=== PATIENT | male | born 1985 | race Caucasian/White ===

== ENCOUNTER 2016-04-06 13:12 | Emergency (ER) | payer MEDICAID, OTHER ==
[2016-04-06] MEDS ORDERED: IBUPROFEN 600 MG TAB As Ordered ONE (13:55)
--- NOTE | 2016-04-06 14:44 | REP ---
Clinical: Trauma; thoracic pain. Technique: AP, lateral, and swimmers views. Findings: Alignment and kyphosis is maintained. Vertebral bodies intact. No acute fracture / compression injury or subluxation. No degenerative changes. Paravertebral soft tissues are normal. Impression: Normal thoracic spine series. Signed by Kofi Sullivan MD 04/06/2016 02:35 P
--- NOTE | 2016-04-06 14:46 | REP ---
Clinical: Trauma. Technique: Frontal view of the chest with multiple views of the right hemithorax. Findings: Frontal view of the chest demonstrates no acute cardiopulmonary process. Multiple views of the right hemithorax demonstrates no obvious acute rib fracture or pathology. Impression: Normal right rib series Signed by Kofi Sullivan MD 04/06/2016 02:37 P
--- NOTE | 2016-04-06 14:48 | REP ---
Clinical: Trauma. Technique: AP, Suleiman and bilateral oblique views of the mandible. Findings: Mandible including bilateral temporomandibular joints appear normal. No acute fracture or dislocation. Impression: Normal mandible radiographs. Signed by Kofi Sullivan MD 04/06/2016 02:39 P
--- NOTE | 2016-04-06 15:06 | REP ---
CERVICAL SPINE, SEVEN VIEWS: HISTORY: Trauma. There is no acute fracture or subluxation. The intervertebral discs are normal in height. The neural foramina are patent. IMPRESSION: There is no acute fracture or subluxation. Signed by Sriram Bustamante MD 04/06/2016 03:29 P
--- NOTE | 2016-04-06 15:56 | EDDOCDS ---
Physician Documentation [facility] Name: Ryan Hoffmann Age: 30 yrs Sex: Male : 1985 Arrival Date: 04/06/2016 Time: 13:12 Bed PR Private MD: Mary Gu Abdul Disposition: 04/06/16 15:39 Discharged to Home/Self Care. Impression: Contusion of back wall of thorax, Acute pain due to trauma, Chronic pain syndrome. - Condition is Stable. - Discharge Instructions: Contusion, Chronic Pain. - Prescriptions for Ibuprofen 600 mg Oral Tablet - take 1 tablet by ORAL route every 6 hours As needed take with food; 30 tablet. Cyclobenzaprine 10 mg Oral Tablet - take 1 tablet by ORAL route 3 times per day As needed; 15 tablet. - Medication Reconciliation, Local Pharmacy Hours form. - Follow up: Mary Gu; When: 4 - 5 days; Reason: Further diagnostic work-up, Recheck today's complaints, Continuance of care. - Problem is new. - Symptoms are unchanged. - Notes: ice 20 min an hour Historical: - Allergies: No known drug Allergies; - Home Meds: 1. Zoloft 50 mg Oral tab 1 tab once daily - PMHx: Asthma; back injury; Degenerative disc disease; Depression; PTSD; - PSHx: right foot surgery; Tonsillectomy; - Social history: Smoking status: Patient states former smoker of tobacco. No barriers to communication noted, The patient speaks fluent Zambian, Speaks appropriately for age. - Family history: Not pertinent. - : The pt / caregiver states he / she is not on anticoagulants. Home medication list is obtained from the patient. - Exposure Risk Screening:: None identified. Vital Signs: 04/06 13:14 BP 134 / 77; Pulse 102; Resp 18 S; Temp 100.4(O); Pulse Ox 100% on R/A; Weight 63.5 kg gr2 / 139.99 lbs (R); Height 5 ft. 7 in. (170.18 cm) (R); Pain 7/10; 15:42 BP 136 / 89; Pulse 85; Resp 18; Temp 98.9; Pulse Ox 98% on R/A; ttb 13:14 Body Mass Index 21.93 (63.50 kg, 170.18 cm) gr2 MDM: 13:47 Spine, Thoracic 3 Views Ordered. EDMS 13:47 Rib Unilat W/PA Chest Only Ordered. EDMS 13:48 Ibuprofen 600 mg PO once ordered. ke 13:48 Spine, Cervical Ordered. EDMS 13:59 Financial registration complete. lg 13:59 Mandible Ordered. EDMS 14:33 [facility] Payment Agreement was scanned into [employer] and attached to record. lg Administered Medications: 13:57 Drug: Ibuprofen 600 mg [ibuprofen 600 mg tablet (1 tabs)] Route: PO; ck1 Signatures: Dispatcher [employer] EDMS Mehnaz Cool, Reg Reg lg Prieto Roca, SHRIMP PICKER SHRIMP PICKER Margaret HuffRN RN ck1 Melissa Heredia, THIAGO RN ttb The chart was reviewed and I authenticate all verbal orders and agree with the evaluation and treatment provided.Attachments: 14:33 [facility] Payment Agreement lg MTDD
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
--- NOTE | 2016-04-08 16:56 | EDDOCDS ---
Physician Documentation [facility] Name: Ryan Hoffmann Age: 30 yrs Sex: Male : 1985 Arrival Date: 04/06/2016 Time: 13:12 Bed PR Private MD: Mary Gu Abdul Disposition: 04/06/16 15:39 Discharged to Home/Self Care. Impression: Contusion of back wall of thorax, Acute pain due to trauma, Chronic pain syndrome. - Condition is Stable. - Discharge Instructions: Contusion, Chronic Pain. - Prescriptions for Ibuprofen 600 mg Oral Tablet - take 1 tablet by ORAL route every 6 hours As needed take with food; 30 tablet. Cyclobenzaprine 10 mg Oral Tablet - take 1 tablet by ORAL route 3 times per day As needed; 15 tablet. - Medication Reconciliation, Local Pharmacy Hours form. - Follow up: Mary Gu; When: 4 - 5 days; Reason: Further diagnostic work-up, Recheck today's complaints, Continuance of care. - Problem is new. - Symptoms are unchanged. - Notes: ice 20 min an hour Historical: - Allergies: No known drug Allergies; - Home Meds: 1. Zoloft 50 mg Oral tab 1 tab once daily - PMHx: Asthma; back injury; Degenerative disc disease; Depression; PTSD; - PSHx: right foot surgery; Tonsillectomy; - Social history: Smoking status: Patient states former smoker of tobacco. No barriers to communication noted, The patient speaks fluent Vietnamese, Speaks appropriately for age. - Family history: Not pertinent. - : The pt / caregiver states he / she is not on anticoagulants. Home medication list is obtained from the patient. - Exposure Risk Screening:: None identified. Vital Signs: 04/06 13:14 BP 134 / 77; Pulse 102; Resp 18 S; Temp 100.4(O); Pulse Ox 100% on R/A; Weight 63.5 kg gr2 / 139.99 lbs (R); Height 5 ft. 7 in. (170.18 cm) (R); Pain 7/10; 15:42 BP 136 / 89; Pulse 85; Resp 18; Temp 98.9; Pulse Ox 98% on R/A; ttb 13:14 Body Mass Index 21.93 (63.50 kg, 170.18 cm) gr2 MDM: 13:47 Spine, Thoracic 3 Views Ordered. EDMS 13:47 Rib Unilat W/PA Chest Only Ordered. EDMS 13:48 Ibuprofen 600 mg PO once ordered. ke 13:48 Spine, Cervical Ordered. EDMS 13:59 Financial registration complete. lg 13:59 Mandible Ordered. EDMS 14:33 [facility] Payment Agreement was scanned into [email or web address] and attached to record. 04/07 11:29 T-Sheet-- Draft Copy was scanned into [email or web address] and attached to record. gb Administered Medications: 04/06 13:57 Drug: Ibuprofen 600 mg [ibuprofen 600 mg tablet (1 tabs)] Route: PO; ck1 Signatures: Dispatcher [employer] EDMS Ines Ashby, Reg Reg Mehnaz Preciado, Reg Reg lg Prieto Roca, WASHING MACHINE ASSEMBLER WASHING MACHINE ASSEMBLER Margaret Huff,RN RN ck1 Melissa Heredia RN RN ttb The chart was reviewed and I authenticate all verbal orders and agree with the evaluation and treatment provided.Attachments: 14:33 [facility] Payment Agreement 04/07 11:29 T-Sheet-- Draft Copy gb Chart Complete MTDD
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
--- NOTE | 2016-04-08 16:56 | EDDOCDS ---
Physician Documentation [facility] Name: Ryan Hoffmann Age: 30 yrs Sex: Male : 1985 Arrival Date: 04/06/2016 Time: 13:12 Bed PR Private MD: Mary Gu Abdul Disposition: 04/06/16 15:39 Discharged to Home/Self Care. Impression: Contusion of back wall of thorax, Acute pain due to trauma, Chronic pain syndrome. - Condition is Stable. - Discharge Instructions: Contusion, Chronic Pain. - Prescriptions for Ibuprofen 600 mg Oral Tablet - take 1 tablet by ORAL route every 6 hours As needed take with food; 30 tablet. Cyclobenzaprine 10 mg Oral Tablet - take 1 tablet by ORAL route 3 times per day As needed; 15 tablet. - Medication Reconciliation, Local Pharmacy Hours form. - Follow up: Mary Gu; When: 4 - 5 days; Reason: Further diagnostic work-up, Recheck today's complaints, Continuance of care. - Problem is new. - Symptoms are unchanged. - Notes: ice 20 min an hour Historical: - Allergies: No known drug Allergies; - Home Meds: 1. Zoloft 50 mg Oral tab 1 tab once daily - PMHx: Asthma; back injury; Degenerative disc disease; Depression; PTSD; - PSHx: right foot surgery; Tonsillectomy; - Social history: Smoking status: Patient states former smoker of tobacco. No barriers to communication noted, The patient speaks fluent Austrian, Speaks appropriately for age. - Family history: Not pertinent. - : The pt / caregiver states he / she is not on anticoagulants. Home medication list is obtained from the patient. - Exposure Risk Screening:: None identified. Vital Signs: 04/06 13:14 BP 134 / 77; Pulse 102; Resp 18 S; Temp 100.4(O); Pulse Ox 100% on R/A; Weight 63.5 kg gr2 / 139.99 lbs (R); Height 5 ft. 7 in. (170.18 cm) (R); Pain 7/10; 15:42 BP 136 / 89; Pulse 85; Resp 18; Temp 98.9; Pulse Ox 98% on R/A; ttb 13:14 Body Mass Index 21.93 (63.50 kg, 170.18 cm) gr2 MDM: 13:47 Spine, Thoracic 3 Views Ordered. EDMS 13:47 Rib Unilat W/PA Chest Only Ordered. EDMS 13:48 Ibuprofen 600 mg PO once ordered. ke 13:48 Spine, Cervical Ordered. EDMS 13:59 Financial registration complete. lg 13:59 Mandible Ordered. EDMS 14:33 [facility] Payment Agreement was scanned into [employer] and attached to record. 04/07 11:29 T-Sheet-- Draft Copy was scanned into [employer] and attached to record. gb Administered Medications: 04/06 13:57 Drug: Ibuprofen 600 mg [ibuprofen 600 mg tablet (1 tabs)] Route: PO; ck1 Signatures: Dispatcher [employer] EDMS Ines Ashby, Reg Reg Mehnaz Preciado, Reg Reg lg Prieto Roca, EXPANDING MACHINE OPERATOR EXPANDING MACHINE OPERATOR Margaret Huff,RN RN ck1 Melissa Heredia RN RN ttb The chart was reviewed and I authenticate all verbal orders and agree with the evaluation and treatment provided.Attachments: 14:33 [facility] Payment Agreement 04/07 11:29 T-Sheet-- Draft Copy gb Chart Complete MTDD
== END 2016-04-06 15:55 | disposition home or self-care (01) ==
LOC: M ED 13:12
DX: S20.229A Contusion of unspecified back wall of thorax, initial encounter (principal); M54.9 Dorsalgia, unspecified; G89.29 Other chronic pain; J45.909 Unspecified asthma, uncomplicated; F43.12 Post-traumatic stress disorder, chronic; M51.35 Other intervertebral disc degeneration, thoracolumbar region; Z87.891 Personal history of nicotine dependence; Z79.899 Other long term (current) drug therapy; Y04.0XXA Assault by unarmed brawl or fight, initial encounter; Y92.89 Other specified places as the place of occurrence of the external cause; Y93.89 Activity, other specified; Y99.9 Unspecified external cause status

== ENCOUNTER → 2016-04-23 | Outpatient (CLI) | payer OTHER ==
[2016-04-23 11:35] LABS: MEAN CORPUSCULAR HEMOGLOBIN 30.7 pg (27.0-33.0); MEAN CORPUSCULAR HGB CONC 33.3 g/dl (32.0-36.5); MEAN CORPUSCULAR VOLUME 92.1 fl (80.0-96.0); RED CELL DISTRIBUTION WIDTH 12.5 % (11.5-14.5); WHITE BLOOD COUNT 6.2 K/mm3 (4.0-10.0)
[2016-04-23 12:18] LABS: ALBUMIN 4.2 GM/DL (3.2-5.2); ALBUMIN/GLOBULIN RATIO 1.35 (1.00-1.93); ALKALINE PHOSPHATASE 80 U/L (45-117); ALT/SGPT 15 U/L (12-78); ANION GAP 8 MEQ/L (8-16); AST/SGOT 15 U/L (15-37); BILIRUBIN,TOTAL 0.4 MG/DL (0.2-1.0); BLOOD UREA NITROGEN 8 MG/DL (7-18); CALCIUM LEVEL 8.8 MG/DL (8.5-10.1); CARBON DIOXIDE LEVEL 28 MEQ/L (21-32); CHLORIDE LEVEL 104 MEQ/L (98-107); CHOLESTEROL LEVEL 147 MG/DL (<200); CREATININE FOR GFR 0.94 MG/DL (0.70-1.30); GLOMERULAR FILTRATION RATE > 60.0 (>60); GLUCOSE, FASTING 102 MG/DL (70-105); POTASSIUM SERUM 4.3 MEQ/L (3.5-5.1); SODIUM LEVEL 140 MEQ/L (136-145); TOTAL PROTEIN 7.3 GM/DL (6.4-8.2); TRIGLYCERIDES LEVEL 124 MG/DL (<150)
--- NOTE | 2016-04-23 13:07 | REP ---
SCROTAL ULTRASOUND: Real-time sonographic evaluation of scrotum and contents performed. Testicles are normal in size and echotexture, right testicle measuring 3.9 x 2.8 x 3.5 cm and left testicle 3.6 x 2.2 x 2.8 cm. There is no testicular mass or torsion. Blood flow is seen in each testicle with duplex Doppler evaluation, RI of the right testicle 0.5 and left testicle 0.44. A 3 mm cyst is seen in the head of the right epididymis. Reportedly, there is a palpable abnormality on the right, corresponding to the head of the epididymis. IMPRESSION: No testicular mass or torsion. Tiny cyst in the head of the right epididymis. Otherwise, unremarkable exam. Signed by Steven Esquivel MD 04/23/2016 04:17 P
== END ==
LOC: M RAD 10:53 → M LAB 10:53
PROVIDERS: ATTEND Family Medicine
DX: N50.3 Cyst of epididymis (principal); D64.9 Anemia, unspecified; R53.83 Other fatigue

== ENCOUNTER → 2016-06-05 | Outpatient (CLI) | payer OTHER ==
--- NOTE | 2016-06-05 09:02 | REP ---
MRI THORACIC SPINE WITHOUT CONTRAST: HISTORY: Back pain. A small left paracentral disc protrusion is present at the T5-6 level. There is minimal effacement of the thecal sac without spinal cord compression. The T5 neural foramina are patent. A small central disc protrusion is present at the T6-7 level. This abuts the spinal cord. The C6 neural foramina are patent. A small right paracentral disc protrusion is present at the T8-9 level. There is minimal effacement of the thecal sac without spinal cord compression. The T8 neural foramina are patent. There is no other disc bulge or herniation. The remaining neural foramina are patent. The spinal cord is normal in signal intensity. Normal signal intensity is present in the thoracic vertebral bodies. IMPRESSION: Small disc protrusions at the T5-6, T6-7 and T8-9 levels without spinal cord compression. Signed by Sriram Bustamante MD 06/05/2016 09:04 A
--- NOTE | 2016-06-05 09:18 | REP ---
MR LUMBAR SPINE WITHOUT CONTRAST: HISTORY: Back pain. There is no disc bulge or herniation at the L1-2 through L3-4 and L5-S1 levels. The nerves exit the neural foramina without compression. A diffuse disc bulge is present at the L4-5 level. This abuts the thecal sac. The L4 nerves exit the neural foramina without compression. The conus medullaris is normal in appearance terminating at the level of the L1-2 intervertebral disc. Normal signal intensity is present in the lumbar intervertebral discs and vertebral bodies. IMPRESSION: Diffuse disc bulge at the L4-5 level. This abuts the thecal sac. Signed by Sriram Bustamante MD 06/05/2016 09:22 A
== END ==
LOC: M RAD 06:58
PROVIDERS: ATTEND Physician Assistant
DX: M51.34 Other intervertebral disc degeneration, thoracic region (principal); M51.26 Other intervertebral disc displacement, lumbar region

== ENCOUNTER 2017-03-02 12:03 | Emergency (ER) | payer MEDICAID, OTHER ==
[2017-03-02] MEDS: ONDANSETRON 4 MG ORAL DISINTEGRATING TAB (S0181) PO (11:56)
[2017-03-02] MEDS: NAPROXEN 250 MG TAB PO (11:57)
== END 2017-03-02 12:58 | disposition home or self-care (01) ==
LOC: M ED 12:03
DX: R52 Pain, unspecified (principal); F99 Mental disorder, not otherwise specified; Z87.891 Personal history of nicotine dependence; Z79.899 Other long term (current) drug therapy
CPT/HCPCS: 71046

== ENCOUNTER → 2017-05-08 | Outpatient (CLI) | payer OTHER ==
[2017-05-08 11:05] LABS: HEMOGLOBIN 13.5 g/dl (14.0-18.0); MEAN CORPUSCULAR HEMOGLOBIN 29.9 pg (27.0-33.0); MEAN CORPUSCULAR HGB CONC 32.9 g/dl (32.0-36.5); MEAN CORPUSCULAR VOLUME 90.7 fl (80.0-96.0); PLATELET COUNT, AUTOMATED 305 10^3/uL (150-450); RED BLOOD COUNT 4.52 10^6/uL (4.30-6.10); RED CELL DISTRIBUTION WIDTH 14.3 % (11.5-14.5); WHITE BLOOD COUNT 5.6 10^3/uL (4.0-10.0)
[2017-05-08 11:30] LABS: ERYTHROCYTE SEDIMENTATION RATE 1 mm/hr (0-15)
[2017-05-08 11:36] LABS: ALBUMIN 4.6 GM/DL (3.2-5.2); ALBUMIN/GLOBULIN RATIO 1.59 (1.00-1.93); ALKALINE PHOSPHATASE 64 U/L (45-117); ALT/SGPT 15 U/L (12-78); ANION GAP 3 MEQ/L (8-16); AST/SGOT 11 U/L (7-37); BILIRUBIN,TOTAL 0.2 MG/DL (0.2-1.0); BLOOD UREA NITROGEN 13 MG/DL (7-18); CALCIUM LEVEL 8.6 MG/DL (8.5-10.1); CARBON DIOXIDE LEVEL 31 MEQ/L (21-32); CHLORIDE LEVEL 109 MEQ/L (98-107); CHOLESTEROL LEVEL 124 MG/DL (<200); CHOLESTEROL RISK RATIO 2.254 (<5); CREATININE FOR GFR 0.94 MG/DL (0.70-1.30); GLOMERULAR FILTRATION RATE > 60.0 (>60); GLUCOSE, FASTING 82 MG/DL (70-100); HDL CHOLESTEROL 55 MG/DL (>40); LDL CHOLESTEROL 60.2 MG/DL (<100); NON-HDL-C 69 MG/DL; POTASSIUM SERUM 4.3 MEQ/L (3.5-5.1); RHEUMATOID FACTOR QUANT < 10.0 IU/ML (<15.0); SODIUM LEVEL 143 MEQ/L (136-145); THYROID STIMULATING HORMONE 0.578 uIU/ML (0.358-3.740); TOTAL PROTEIN 7.5 GM/DL (6.4-8.2); TRIGLYCERIDES LEVEL 44 MG/DL (<150); URIC ACID 5.6 MG/DL (3.5-7.2)
[2017-05-08 12:03] LABS: TOTAL 25(OH) VITAMIN D 18.9 NG/ML (30.0-100.0)
[2017-05-10 00:07] LABS: Lyme Disease IgG/IgM Antibodie <0.91 ISR (0.00-0.90); Lyme Disease IgM Ab Quantitati <0.80 index (0.00-0.79)
== END ==
LOC: M LAB 10:28
DX: D64.9 Anemia, unspecified (principal); R53.83 Other fatigue; E03.9 Hypothyroidism, unspecified
CPT/HCPCS: 84443

== ENCOUNTER → 2017-07-02 | Outpatient (CLI) | payer OTHER | LOC: M RAD 10:07 | DX: M85.9 Disorder of bone density and structure, unspecified (principal); R63.4 Abnormal weight loss ==

== ENCOUNTER 2017-08-14 21:44 | Emergency (ER) | payer OTHER ==
[2017-08-14] MEDS: PENICILLIN V POTASSIUM 500 MG TAB PO (22:17)
[2017-08-14] MEDS: OXYCODONE/APAP 5MG/325MG(BULK FOR ED) 1 TABLET PO (22:17)
== END 2017-08-14 22:44 | disposition home or self-care (01) ==
LOC: M ED 21:44
DX: S02.5XXA Fracture of tooth (traumatic), initial encounter for closed fracture (principal); K04.7 Periapical abscess without sinus; K02.9 Dental caries, unspecified; X58.XXXA Exposure to other specified factors, initial encounter; Y92.9 Unspecified place or not applicable; Y93.9 Activity, unspecified; Y99.9 Unspecified external cause status; K21.9 Gastro-esophageal reflux disease without esophagitis; F90.9 Attention-deficit hyperactivity disorder, unspecified type; Z72.0 Tobacco use; Z79.899 Other long term (current) drug therapy
CPT/HCPCS: 99282

== ENCOUNTER 2017-10-24 14:31 | Emergency (ER) | payer OTHER | END 2017-10-24 16:09 | disposition home or self-care (01) | LOC: M ED 14:31 | DX: S02.5XXA Fracture of tooth (traumatic), initial encounter for closed fracture (principal); X58.XXXA Exposure to other specified factors, initial encounter; Y92.89 Other specified places as the place of occurrence of the external cause; J45.909 Unspecified asthma, uncomplicated; G43.909 Migraine, unspecified, not intractable, without status migrainosus; K21.9 Gastro-esophageal reflux disease without esophagitis; F33.9 Major depressive disorder, recurrent, unspecified; F41.9 Anxiety disorder, unspecified; F90.9 Attention-deficit hyperactivity disorder, unspecified type; Z87.891 Personal history of nicotine dependence | CPT/HCPCS: 99283 ==

== ENCOUNTER → 2017-11-17 | Outpatient (CLI) | payer OTHER | LOC: M WUC 13:10 | DX: S20.211A Contusion of right front wall of thorax, initial encounter (principal); X58.XXXA Exposure to other specified factors, initial encounter; Y92.89 Other specified places as the place of occurrence of the external cause; Y93.9 Activity, unspecified; Y99.9 Unspecified external cause status | CPT/HCPCS: 71101 ==

== ENCOUNTER 2017-12-14 01:06 | Emergency (ER) | payer OTHER ==
[2017-12-14] MEDS: LORazepam 2 MG/ML VIAL (J2060) IV (02:20)
[2017-12-14] MEDS: NS 500 ML IV ×2 (02:20→03:00)
[2017-12-14 02:29] LABS: ANION GAP 19 MEQ/L (8-16); BLOOD UREA NITROGEN 14 MG/DL (7-18); CALCIUM LEVEL 9.3 MG/DL (8.5-10.1); CARBON DIOXIDE LEVEL 19 MEQ/L (21-32); CHLORIDE LEVEL 101 MEQ/L (98-107); CREATININE FOR GFR 1.43 MG/DL (0.70-1.30); GLOMERULAR FILTRATION RATE > 60.0 (>60); GLUCOSE, FASTING 127 MG/DL (70-100); POTASSIUM SERUM 4.2 MEQ/L (3.5-5.1); SODIUM LEVEL 139 MEQ/L (136-145)
== END 2017-12-14 03:58 | disposition home or self-care (01) ==
LOC: M ED 01:06
DX: R25.8 Other abnormal involuntary movements (principal); E86.0 Dehydration; M54.9 Dorsalgia, unspecified; G89.29 Other chronic pain
CPT/HCPCS: J2060

== ENCOUNTER 2018-03-29 09:10 | Emergency (ER) | payer OTHER ==
[~2018-03-29] VITALS: Ht 170.2 cm; Wt 65.9 kg
[~2018-03-29 09:10] MED LIST: ALPR1TAB3; ALPR2TAB3; AMOX500C; AMPHETAMINE; AMPHETAMINE PO; APAP/CODEINE; BACL10TA2; GABA-1171 PO; NAPR-50 PO; NORCOTAB PO; PENI500T PO; PERC5TAB12 PO
[2018-03-29] MEDS ORDERED: NICO14DI24 (09:19)
[2018-03-29] MEDS ORDERED: ESCI10TA2 (09:19)
[2018-03-29] MEDS ORDERED: CLON2TAB7 (09:19)
[2018-03-29] MEDS ORDERED: VITA2000 (09:19)
[2018-03-29] MEDS ORDERED: GABA600T4 (09:19)
[2018-03-29] MEDS ORDERED: VENTAER (09:19)
--- NOTE | 2018-03-29 10:10 | REP ---
CT BRAIN WITHOUT IV CONTRAST: CT brain performed without IV contrast. Ventricles are normal in size and position. There is no midline shift or mass effect. Esquivel-white differentiation is well maintained. There is no acute hemorrhage or extra-axial fluid collection. No skull fracture is seen. IMPRESSION: Negative noncontrast CT brain. Electronically Signed by Steven Esquivel MD 03/29/2018 07:20 P
--- NOTE | 2018-03-29 10:12 | REP ---
CT CERVICAL SPINE WITHOUT IV CONTRAST: CT cervical spine performed without IV contrast. Sagittal and coronal reconstruction images are performed. There is no evidence of fracture or dislocation. Vertebral bodies are normal in height and are well aligned. There is no prevertebral soft tissue swelling. Disc spaces are well preserved. There is mild curvature of the cervical spine convex to the left. This could indicate spasm. No abnormal densities are seen in the visualized spinal canal. IMPRESSION: No evidence of acute fracture or dislocation. Slight curvature toward the left. Electronically Signed by Steven Esquivel MD 03/29/2018 07:20 P
[2018-03-29] MEDS ORDERED: ACETAMINOPHEN TAB 650MG DOSE (2X325MG) PO ONE (10:15)
--- NOTE | 2018-03-29 10:15 | REP ---
RIGHT SHOULDER, THREE VIEWS: There is no evidence of an acute fracture, dislocation or intrinsic bone disease. IMPRESSION: No fracture or dislocation. Electronically Signed by Steven Esquivel MD 03/29/2018 07:20 P
--- NOTE | 2018-03-29 10:16 | REP ---
RIGHT CLAVICLE: Two views of the right clavicle performed. There is no acute fracture, dislocation, or intrinsic bone disease. IMPRESSION: No evidence of acute fracture or dislocation. Electronically Signed by Steven Esquivel MD 03/29/2018 07:20 P
[2018-03-29 10:45] VITALS: BP 105/60
== END 2018-03-29 11:13 | disposition home or self-care (01) ==
LOC: M ED 09:10
DX: S00.90XA Unspecified superficial injury of unspecified part of head, initial encounter (principal); S40.011A Contusion of right shoulder, initial encounter; W00.0XXA Fall on same level due to ice and snow, initial encounter; Y92.098 Other place in other non-institutional residence as the place of occurrence of the external cause; J45.909 Unspecified asthma, uncomplicated; G43.909 Migraine, unspecified, not intractable, without status migrainosus; M54.9 Dorsalgia, unspecified; K21.9 Gastro-esophageal reflux disease without esophagitis; F41.9 Anxiety disorder, unspecified; F32.9 Major depressive disorder, single episode, unspecified; F90.9 Attention-deficit hyperactivity disorder, unspecified type; F17.200 Nicotine dependence, unspecified, uncomplicated

== ENCOUNTER → 2018-04-12 | Outpatient (CLI) | payer OTHER ==
[~2018-04-12] MED LIST changes: +CLON2TAB7; +ESCI10TA2; +GABA600T4; +NICO14DI24; +VENTAER; +VITA2000
[2018-04-12 18:32] LABS: BASO # 0.1 10^3/uL (0.0-0.2); BASO % 0.6 % (0.0-1.0); EOS # 0.2 10^3/uL (0.0-0.50); HEMATOCRIT 42.8 % (42.0-52.0); LYMPH # 2.3 10^3/uL (1.5-4.5); LYMPH % 12.8 % (24.0-44.0); MEAN CORPUSCULAR HEMOGLOBIN 29.7 pg (27.0-33.0); MEAN CORPUSCULAR HGB CONC 32.7 g/dl (32.0-36.5); MEAN CORPUSCULAR VOLUME 90.7 fl (80.0-96.0); MONO # 1.5 10^3/uL (0.0-0.8); MONO % 8.2 % (0.0-5.0); PLATELET COUNT, AUTOMATED 459 10^3/uL (150-450); RED BLOOD COUNT 4.72 10^6/uL (4.30-6.10); WHITE BLOOD COUNT 18.2 10^3/uL (4.0-10.0)
[2018-04-12 18:41] LABS: ALT/SGPT 17 U/L (12-78); BILIRUBIN,TOTAL 0.7 MG/DL (0.2-1.0); BLOOD UREA NITROGEN 26 MG/DL (7-18); CALCIUM LEVEL 9.1 MG/DL (8.5-10.1); CARBON DIOXIDE LEVEL 29 MEQ/L (21-32); CHLORIDE LEVEL 98 MEQ/L (98-107); CHOLESTEROL LEVEL 171 MG/DL (<200); CHOLESTEROL RISK RATIO 2.803 (<5); CREATININE FOR GFR 1.18 MG/DL (0.70-1.30); FREE T4 1.09 NG/DL (0.76-1.46); GLOMERULAR FILTRATION RATE > 60.0 (>60); GLUCOSE, FASTING 89 MG/DL (70-100); HDL CHOLESTEROL 61 MG/DL (>40); LDL CHOLESTEROL 98 MG/DL (<100); NON-HDL-C 110 MG/DL; POTASSIUM SERUM 3.8 MEQ/L (3.5-5.1); SODIUM LEVEL 136 MEQ/L (136-145); TOTAL PROTEIN 8.1 GM/DL (6.4-8.2); TRIGLYCERIDES LEVEL 62 MG/DL (<150)
[2018-04-12 19:34] LABS: HEMOGLOBIN A1c 5.9 %
== END ==
LOC: M WUC 09:51
PROVIDERS: ATTEND Physician Assistant
DX: Z13.29 Encounter for screening for other suspected endocrine disorder (principal)

== ENCOUNTER → 2018-07-02 | Outpatient (CLI) | payer OTHER ==
[~2018-07-02] MED LIST changes: +HYDR-3715 PO; -NAPR-50 PO; +NAPR-837 PO; -NORCOTAB PO
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
== END ==
LOC: M PAIN 13:45
PROVIDERS: ATTEND Anesthesiology
DX: M54.6 Pain in thoracic spine (principal); M54.5 Low back pain; G89.29 Other chronic pain; M79.18 Myalgia, other site; J45.909 Unspecified asthma, uncomplicated; Z79.899 Other long term (current) drug therapy; Z86.59 Personal history of other mental and behavioral disorders; Z87.891 Personal history of nicotine dependence

== ENCOUNTER → 2018-08-12 | Outpatient (CLI) | payer OTHER ==
[~2018-08-12] MED LIST changes: +ADDE30CA3 PO; +BUPIVACAINE HCL 0.25% 10 ML VIAL As Ordered ONE; +BUPIVACAINE HCL 0.25% 30 ML VIAL As Ordered ONE; +BUPR150T3; +ESCI20TA; +TIZA2TA; +TRIAMCINOLONE ACETONIDE SUSP 40 MG/ML VIAL (J3301) As Ordered ONE; +diazePAM 5 MG TAB As Ordered ONE; +oxyCODONE 5MG TAB As Ordered ONE
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
== END ==
LOC: M PAIN 08:30
PROVIDERS: ATTEND Anesthesiology
DX: M79.18 Myalgia, other site (principal); F32.9 Major depressive disorder, single episode, unspecified; F41.9 Anxiety disorder, unspecified; J45.909 Unspecified asthma, uncomplicated; F90.9 Attention-deficit hyperactivity disorder, unspecified type; K21.9 Gastro-esophageal reflux disease without esophagitis; Z87.891 Personal history of nicotine dependence; Z79.899 Other long term (current) drug therapy
CPT/HCPCS: 20553; J3301

== ENCOUNTER 2018-08-13 11:57 | Emergency (ER) | payer OTHER ==
[~2018-08-13] VITALS: Ht 170.2 cm; Wt 54.5 kg
[~2018-08-13 11:57] MED LIST changes: -ADDE30CA3 PO; -BUPIVACAINE HCL 0.25% 10 ML VIAL As Ordered ONE; -BUPIVACAINE HCL 0.25% 30 ML VIAL As Ordered ONE; -BUPR150T3; -ESCI20TA; -TIZA2TA; -TRIAMCINOLONE ACETONIDE SUSP 40 MG/ML VIAL (J3301) As Ordered ONE; -diazePAM 5 MG TAB As Ordered ONE; -oxyCODONE 5MG TAB As Ordered ONE
[2018-08-13] MEDS ORDERED: BUPR150T3 (12:13)
[2018-08-13] MEDS ORDERED: ESCI20TA (12:13)
[2018-08-13] MEDS ORDERED: TIZA2TA (12:13)
[2018-08-13] MEDS ORDERED: ADDE30CA3 PO (12:13)
--- NOTE | 2018-08-13 12:54 | REP ---
Clinical: Shortness of breath . Comparison: 10/21/2017 . Technique: PA and lateral. Findings: The mediastinum and cardiac silhouette are normal. The lung jaimes are clear and without acute consolidation, effusion, or pneumothorax. The skeletal structures are intact and normal. Impression: 1. No acute cardiopulmonary process. Electronically Signed by Kofi Sullivan MD 08/13/2018 12:46 P
[2018-08-13 13:46] VITALS: BP 105/64
== END 2018-08-13 13:48 | disposition home or self-care (01) ==
LOC: M ED 11:57
DX: G89.18 Other acute postprocedural pain (principal); G43.909 Migraine, unspecified, not intractable, without status migrainosus; J45.909 Unspecified asthma, uncomplicated; Z79.51 Long term (current) use of inhaled steroids; Z79.899 Other long term (current) drug therapy; Z87.891 Personal history of nicotine dependence

== ENCOUNTER → 2018-09-12 | Outpatient (CLI) | payer OTHER ==
[~2018-09-12] MED LIST changes: +ADDE30CA3 PO; +BUPR150T3; +ESCI20TA; +TIZA2TA
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
== END ==
LOC: M PAIN 10:00
PROVIDERS: ATTEND Family Medicine
DX: M54.6 Pain in thoracic spine (principal); F32.9 Major depressive disorder, single episode, unspecified; F41.9 Anxiety disorder, unspecified; J45.909 Unspecified asthma, uncomplicated; K21.9 Gastro-esophageal reflux disease without esophagitis; F90.9 Attention-deficit hyperactivity disorder, unspecified type; Z87.891 Personal history of nicotine dependence; Z79.899 Other long term (current) drug therapy

== ENCOUNTER 2018-09-19 11:15 | Emergency (ER) | payer OTHER ==
[~2018-09-19] VITALS: Ht 170.2 cm; Wt 52.3 kg
--- NOTE | 2018-09-19 12:08 | REP ---
Clinical: Trauma. Headache . Comparison: 03/29/2018 . Findings: The ventricles, sulci, and cisterns are normal in position and appearance. Esquivel-white differentiation is maintained. No acute intracranial hemorrhage, mass/mass effect, pathology or trauma/injury. No evidence for acute infarction. No extra-axial fluid collection. Calvarium is intact. Paranasal sinuses and mastoid air cells are clear. Impression: Normal noncontrast head CT. No evidence for acute intracranial pathology or trauma/injury. Electronically Signed by Kofi Sullivan MD 09/19/2018 11:59 A
[2018-09-19] MEDS ORDERED: LIDOCAINE 2% MDV 20 ML VIAL SC ONE (12:45)
[2018-09-19 13:43] VITALS: BP 115/76
== END 2018-09-19 13:46 | disposition home or self-care (01) ==
LOC: M ED 11:15
DX: S09.90XA Unspecified injury of head, initial encounter (principal); S01.511A Laceration without foreign body of lip, initial encounter; S02.5XXA Fracture of tooth (traumatic), initial encounter for closed fracture; W10.8XXA Fall (on) (from) other stairs and steps, initial encounter; Y92.098 Other place in other non-institutional residence as the place of occurrence of the external cause; J45.909 Unspecified asthma, uncomplicated; G43.909 Migraine, unspecified, not intractable, without status migrainosus; K21.9 Gastro-esophageal reflux disease without esophagitis; M54.9 Dorsalgia, unspecified; F41.9 Anxiety disorder, unspecified; F32.9 Major depressive disorder, single episode, unspecified; Z79.899 Other long term (current) drug therapy

== ENCOUNTER → 2018-09-22 | Outpatient (CLI) | payer OTHER ==
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
== END ==
LOC: M PAIN 09:45
PROVIDERS: ATTEND Family Medicine
DX: M54.5 Low back pain (principal); G89.29 Other chronic pain; Z86.59 Personal history of other mental and behavioral disorders; J45.909 Unspecified asthma, uncomplicated; Z87.891 Personal history of nicotine dependence; Z79.899 Other long term (current) drug therapy

== ENCOUNTER → 2018-11-06 | Outpatient (CLI) | payer OTHER ==
[~2018-11-06] MED LIST changes: +ADDE30TA PO; +AMPHETA/DEXTRO; +BUPR150T3 PO; +CARI1TAB7 PO; +CLON2TAB7 PO; +D200CAP PO; +ESCI20TA PO; +GABA-843 PO; +INDO50CA91 PO; +PATIENT COMMENT; +VENTAER INH
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
== END ==
LOC: M PAIN 09:15
PROVIDERS: ATTEND Anesthesiology
DX: M79.18 Myalgia, other site (principal); Z86.59 Personal history of other mental and behavioral disorders; J45.909 Unspecified asthma, uncomplicated; Z87.891 Personal history of nicotine dependence; Z79.899 Other long term (current) drug therapy

== ENCOUNTER 2018-12-08 21:07 | Inpatient (IN) | payer OTHER ==
[~2018-12-08] VITALS: Ht 170.2 cm; Wt 59.7 kg
[~2018-12-08 21:07] MED LIST changes: -ADDE30TA PO; -AMPHETA/DEXTRO; -BUPR150T3 PO; -CARI1TAB7 PO; -CLON2TAB7 PO; -D200CAP PO; -ESCI20TA PO; -GABA-843 PO; -INDO50CA91 PO; -PATIENT COMMENT; -VENTAER INH
[2018-12-08 21:31] LABS: BASO # 0.1 10^3/uL (0.0-0.2); BASO % 0.5 % (0.0-1.0); EOS # 0.4 10^3/uL (0.0-0.5); EOS % 1.5 % (0.0-3.0); LYMPH # 1.4 10^3/uL (1.5-5.0); LYMPH % 5.9 % (24.0-44.0); MEAN CORPUSCULAR HEMOGLOBIN 30.2 pg (27.0-33.0); MEAN CORPUSCULAR HGB CONC 34.2 g/dl (32.0-36.5); MEAN CORPUSCULAR VOLUME 88.4 fl (80.0-96.0); MONO # 1.9 10^3/uL (0.0-0.8); MONO % 7.8 % (0.0-5.0); NEUTROPHILS # 20.1 10^3/uL (1.5-8.5); PLATELET COUNT, AUTOMATED 376 10^3/uL (150-450); WHITE BLOOD COUNT 23.9 10^3/uL (4.0-10.0)
[2018-12-08 22:11] LABS: ACETAMINOPHEN LEVEL < 2.0 UG/ML (10.0-30.0); ALBUMIN 4.6 GM/DL (3.2-5.2); ALT/SGPT 20 U/L (12-78); BILIRUBIN,DIRECT 0.1 MG/DL (0.0-0.2); BILIRUBIN,TOTAL 0.5 MG/DL (0.2-1.0); BLOOD UREA NITROGEN 18 MG/DL (7-18); CALCIUM LEVEL 9.2 MG/DL (8.5-10.1); CARBON DIOXIDE LEVEL 25 MEQ/L (21-32); CHLORIDE LEVEL 107 MEQ/L (98-107); CPK CREATINE PHOSPHOKINASE 1334 U/L (39-308); CREATININE FOR GFR 1.26 MG/DL (0.70-1.30); ETHYL ALCOHOL (ETHANOL) < 0.003 % (0.000-0.010); GLOMERULAR FILTRATION RATE > 60.0 (>60); GLUCOSE, FASTING 75 MG/DL (70-100); POTASSIUM SERUM 4.1 MEQ/L (3.5-5.1); SALICYLATE LEVEL < 1.7 MG/DL (5.0-30.0); SODIUM LEVEL 140 MEQ/L (136-145); THYROID STIMULATING HORMONE 0.616 uIU/ML (0.358-3.740); TOTAL PROTEIN 7.4 GM/DL (6.4-8.2)
[2018-12-08 22:47] LABS: C REACTIVE PROTEIN QUANTITATIV 0.71 MG/DL (0.00-0.30)
[2018-12-08] MEDS ORDERED: PROPOFOL 1,000 MG/100 ML VIAL As Ordered ONE (22:53)
[2018-12-08] MEDS ORDERED: SUCCINYLCHOLINE INJ 200 MG/10 ML VIAL (J0330) IV ONE (23:00)
[2018-12-08] MEDS ORDERED: ETOMIDATE INJ 20MG/10ML VIAL IV ONE (23:00)
[2018-12-08] MEDS: PROPOFOL 1,000 MG in IV 1 EA IV SCH ×2 (23:02→23:37)
[2018-12-08 23:11] LABS: AMPHETAMINES LEVEL URINE POSITIVE (NEGATIVE); BARBITURATES URINE NEGATIVE (NEGATIVE); BENZODIAZEPINES URINE NEGATIVE (NEGATIVE); CANNABINOIDS URINE POSITIVE (NEGATIVE); COCAINE METABOLITE URINE NEGATIVE (NEGATIVE); METHADONE URINE NEGATIVE (NEGATIVE); OPIATES URINE NEGATIVE (NEGATIVE); PHENCYCLIDINE URINE NEGATIVE (NEGATIVE)
[2018-12-08] MEDS ORDERED: D200CAP PO (23:46)
[2018-12-08] MEDS ORDERED: GABA-843 PO ×2 (23:46)
[2018-12-08] MEDS ORDERED: CARI1TAB7 PO (23:46)
[2018-12-08] MEDS ORDERED: CLON2TAB7 PO (23:46)
[2018-12-08] MEDS ORDERED: ESCI20TA PO (23:46)
[2018-12-08] MEDS ORDERED: VENTAER INH (23:46)
[2018-12-08] MEDS ORDERED: BUPR150T3 PO (23:46)
[2018-12-08] MEDS ORDERED: ADDE30TA PO (23:46)
[2018-12-08] MEDS ORDERED: PATIENT COMMENT (23:47)
[2018-12-08 23:54] LABS: ABG BASE EXCESS -3.9 (-2.0-2.0); ABG HCO3 20.6 MEQ/L (22.0-26.0); ABG O2 SATURATION 99.3 % (95.0-99.0); ABG PARTIAL PRESSURE CO2 35.7 mmHg (35.0-45.0); ABG PARTIAL PRESSURE O2 288.7 mmHg (75.0-100.0); ABG STANDARD HCO3 21.3 MEQ/L (22.0-26.0); ABG TOTAL CO2 21.7 MEQ/L (22.0-29.0); ABG pH (ARTERIAL) 7.379 UNITS (7.350-7.450)
[2018-12-09] VITALS (37 sets, daily range): BP systolic 99–130; BP diastolic 59–89; O2SAT 100
--- NOTE | 2018-12-09 00:03 | REPVR ---
PROCEDURE INFORMATION: Exam: CT Head Without Contrast Exam date and time: 12/08/2018 10:47 PM Clinical history: 33 years old, male; Injury or trauma; Fall; Initial encounter; Concussion / head injury; Additional info: AMS, head trauma TECHNIQUE: Imaging protocol: Computed tomography of the head without contrast. Radiation optimization: All CT scans at this facility use at least one of these dose optimization techniques: automated exposure control; mA and/or kV adjustment per patient size (includes targeted exams where dose is matched to clinical indication); or iterative reconstruction. COMPARISON: CT Head without contrast 09/19/2018 11:40 AM FINDINGS: Brain: No intracranial hemorrhage or extra-axial fluid collection. No evidence of mass effect or midline shift. Esquivel-white matter differentiation is intact. Ventricles: No ventriculomegaly. Bones/joints: No acute calvarial fracture. Mastoid air cells: Unremarkable. Soft tissues: Unremarkable. IMPRESSION: No acute intracranial pathology. Electronically signed by: Felipe Parnell On 12/09/2018 00:02:52 AM
--- NOTE | 2018-12-09 00:05 | REPVR ---
PROCEDURE INFORMATION: Exam: CT Maxillofacial Without Contrast Exam date and time: 12/08/2018 10:47 PM Clinical history: 33 years old, male; Face pain; Additional info: AMS, head trauma TECHNIQUE: Imaging protocol: Computed tomography images of the face without contrast. Radiation optimization: All CT scans at this facility use at least one of these dose optimization techniques: automated exposure control; mA and/or kV adjustment per patient size (includes targeted exams where dose is matched to clinical indication); or iterative reconstruction. COMPARISON: No relevant prior studies available. FINDINGS: Tubes, catheters and devices: Endotracheal and enteric tubes in place. Orbits: No acute intraorbital abnormality. Globes are intact. Sinuses: Mild mucosal thickening of the paranasal sinuses. Bones/joints: No acute fracture. Soft tissues: Unremarkable. IMPRESSION: No acute maxillofacial fracture. Electronically signed by: Felipe Parnell On 12/09/2018 00:04:58 AM
--- NOTE | 2018-12-09 00:07 | REPVR ---
PROCEDURE INFORMATION: Exam: CT Cervical Spine Without Contrast Exam date and time: 12/08/2018 10:47 PM Clinical history: 33 years old, male; Neck pain; Additional info: AMS, head trauma TECHNIQUE: Imaging protocol: Computed tomography images of the cervical spine without contrast. Radiation optimization: All CT scans at this facility use at least one of these dose optimization techniques: automated exposure control; mA and/or kV adjustment per patient size (includes targeted exams where dose is matched to clinical indication); or iterative reconstruction. COMPARISON: CT Spine,cervical w/o contrast 03/29/2018 9:26 AM FINDINGS: Tubes, catheters and devices: Endotracheal and enteric tubes in place. Vertebrae: The cervical lordosis is normal. Vertebral body heights are maintained. No locked or perched facets. No acute cervical spine fracture. The dens is intact. Atlantoaxial intervals are normal. Discs/Spinal canal/Neural foramina: Disc space heights are normal. Soft tissues: Unremarkable. Lungs: Lung apices are clear. IMPRESSION: No acute cervical spine fracture. Electronically signed by: Felipe Parnell On 12/09/2018 00:07:35 AM
[2018-12-09] MEDS ORDERED: NS 1,000 ML IV STA (00:13)
[2018-12-09] MEDS ORDERED: NS 1,000 ML IV ONE (00:15)
[2018-12-09] MEDS ORDERED: METAL LOCK LOOP XX ONE (00:28)
--- NOTE | 2018-12-09 01:31 | REP ---
Clinical: Status post intubation . Comparison: 08/13/2018 . Findings: Endotracheal tube approximately 5 cm above the bambi. Nasogastric tube courses below left hemidiaphragm. The mediastinum and cardiac silhouette are stable and within normal limits for portable technique. The lung jaimes are clear without acute consolidation, effusion, or pneumothorax. Skeletal structures are intact. Impression: ETT and NGT in satisfactory position. No acute cardiopulmonary process appreciated. Electronically Signed by Kofi Sullivan MD 12/09/2018 01:23 A
[2018-12-09 02:10] LABS: HEMATOCRIT 33.3 % (42.0-52.0); HEMOGLOBIN 11.5 g/dl (13.5-17.5); MEAN CORPUSCULAR HEMOGLOBIN 31.2 pg (27.0-33.0); MEAN CORPUSCULAR HGB CONC 34.5 g/dl (32.0-36.5); MEAN CORPUSCULAR VOLUME 90.2 fl (80.0-96.0); PLATELET COUNT, AUTOMATED 303 10^3/uL (150-450); RED BLOOD COUNT 3.69 10^6/uL (4.30-6.10); WHITE BLOOD COUNT 19.2 10^3/uL (4.0-10.0)
[2018-12-09] MEDS: PROPOFOL 1,000 MG in IV 1 EA IV SCH ×5 (02:55→18:07)
[2018-12-09] MEDS ORDERED: cefTRIAXone SOD 1 GM in D5W MINI-BAG PLUS 50 ML IV ONE (03:30)
[2018-12-09 03:38] LABS: APPEARANCE, CSF CLEAR (CLEAR); COLOR, CSF COLORLESS (COLORLESS); CSF TUBE# CELL CNT TUBE 1
[2018-12-09 03:40] LABS: APPEARANCE, CSF CLEAR (CLEAR); COLOR, CSF COLORLESS (COLORLESS); CSF TUBE# CELL CNT TUBE 4
[2018-12-09 04:00] LABS: CSF TUBE# GLU TUBE 3; CSF TUBE# TP TUBE 3; GLUCOSE CSF 53 MG/DL (40-75); TOTAL PROTEIN,CSF 48 MG/DL (15-45)
[2018-12-09 04:03] LABS: ABG HCO3 20.1 MEQ/L (22.0-26.0); ABG O2 SATURATION 99.5 % (95.0-99.0); ABG PARTIAL PRESSURE CO2 33.4 mmHg (35.0-45.0); ABG PARTIAL PRESSURE O2 279.1 mmHg (75.0-100.0); ABG STANDARD HCO3 21.2 MEQ/L (22.0-26.0); ABG TOTAL CO2 21.1 MEQ/L (22.0-29.0); ABG pH (ARTERIAL) 7.397 UNITS (7.350-7.450)
[2018-12-09] MEDS ORDERED: NS 1,850 ML in IV 1 EA IV ONE (04:15)
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
[2018-12-09] MEDS: KCL 40MEQ IN D5/0.45NS 1000ML 1,000 ML IV SCH ×3 (06:12→21:25)
[2018-12-09] MEDS: IPRATROPIUM 0.5MG/ALBUTEROL 2.5MG INH SOL UD 3ML (DUONEB)(J7620) NEB SCH ×4 (08:19→20:11)
[2018-12-09] MEDS: MORPHINE 4 MG/ML 1ML VIAL/SYRINGE (J2270) IV PRN ×3 (08:45→19:38)
[2018-12-09] MEDS ORDERED: MIDAZOLAM INJ 2 MG/2 ML VIAL (J2250) As Ordered ONE ×2 (08:49→08:50)
[2018-12-09] MEDS ORDERED: MIDAZOLAM INJ 2 MG/2 ML VIAL (J2250) IV ONE ×2 (09:00→12:45)
[2018-12-09] MEDS: PANTOPRAZOLE 40MG INJ (PROTONIX) (C9113) IV SCH (09:22)
[2018-12-09] MEDS: CHLORHEXIDINE GLUCONATE 0.12 % 15ML UDC (PERIDEX ORAL RINSE) MT SCH ×2 (09:22→20:28)
[2018-12-09] MEDS: ENOXAPARIN 40 MG/0.4 ML SYRINGE (J1650) SC SCH (09:23)
--- NOTE | 2018-12-09 10:11 | ECGEPIP ---
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
[2018-12-09 12:51] LABS: ALBUMIN 3.4 GM/DL (3.2-5.2); ALT/SGPT 21 U/L (12-78); BILIRUBIN,TOTAL 0.6 MG/DL (0.2-1.0); BLOOD UREA NITROGEN 18 MG/DL (7-18); CALCIUM LEVEL 8.3 MG/DL (8.5-10.1); CARBON DIOXIDE LEVEL 24 MEQ/L (21-32); CHLORIDE LEVEL 111 MEQ/L (98-107); CPK CREATINE PHOSPHOKINASE 11504 U/L (39-308); CREATININE FOR GFR 1.14 MG/DL (0.70-1.30); GLOMERULAR FILTRATION RATE > 60.0 (>60); GLUCOSE, FASTING 92 MG/DL (70-100); POTASSIUM SERUM 3.8 MEQ/L (3.5-5.1); SODIUM LEVEL 143 MEQ/L (136-145); TOTAL PROTEIN 5.5 GM/DL (6.4-8.2)
[2018-12-09] MEDS ORDERED: MIDAZOLAM INJ 2 MG/2 ML VIAL (J2250) IV PRN (16:15)
[2018-12-10] VITALS (13 sets, daily range): BP systolic 104–125; BP diastolic 58–85; O2SAT 98–99
[2018-12-10] MEDS: MORPHINE 4 MG/ML 1ML VIAL/SYRINGE (J2270) IV PRN ×2 (00:39→07:41)
[2018-12-10] MEDS: KCL 40MEQ IN D5/0.45NS 1000ML 1,000 ML IV SCH ×4 (03:43→22:58)
[2018-12-10 05:08] LABS: HEMATOCRIT 32.5 % (42.0-52.0); HEMOGLOBIN 10.8 g/dl (13.5-17.5); MEAN CORPUSCULAR HEMOGLOBIN 30.7 pg (27.0-33.0); MEAN CORPUSCULAR HGB CONC 33.2 g/dl (32.0-36.5); MEAN CORPUSCULAR VOLUME 92.3 fl (80.0-96.0); PLATELET COUNT, AUTOMATED 308 10^3/uL (150-450); RED BLOOD COUNT 3.52 10^6/uL (4.30-6.10); WHITE BLOOD COUNT 9.7 10^3/uL (4.0-10.0)
[2018-12-10] MEDS: PROPOFOL 1,000 MG in IV 1 EA IV SCH (05:20)
[2018-12-10 05:23] LABS: BLOOD UREA NITROGEN 10 MG/DL (7-18); CALCIUM LEVEL 7.6 MG/DL (8.5-10.1); CARBON DIOXIDE LEVEL 24 MEQ/L (21-32); CHLORIDE LEVEL 116 MEQ/L (98-107); CREATININE FOR GFR 0.94 MG/DL (0.70-1.30); GLOMERULAR FILTRATION RATE > 60.0 (>60); GLUCOSE, FASTING 107 MG/DL (70-100); SODIUM LEVEL 146 MEQ/L (136-145)
[2018-12-10 06:15] LABS: ABG BASE EXCESS -0.4 (-2.0-2.0); ABG HCO3 22.9 MEQ/L (22.0-26.0); ABG O2 SATURATION 99.1 % (95.0-99.0); ABG PARTIAL PRESSURE CO2 32.8 mmHg (35.0-45.0); ABG PARTIAL PRESSURE O2 161.4 mmHg (75.0-100.0); ABG STANDARD HCO3 24.2 MEQ/L (22.0-26.0); ABG TOTAL CO2 23.9 MEQ/L (22.0-29.0); ABG pH (ARTERIAL) 7.461 UNITS (7.350-7.450)
[2018-12-10] MEDS: IPRATROPIUM 0.5MG/ALBUTEROL 2.5MG INH SOL UD 3ML (DUONEB)(J7620) NEB SCH (07:37)
[2018-12-10] MEDS: PANTOPRAZOLE 40MG INJ (PROTONIX) (C9113) IV SCH (07:41)
[2018-12-10] MEDS: ENOXAPARIN 40 MG/0.4 ML SYRINGE (J1650) SC SCH (07:41)
[2018-12-10] MEDS: CHLORHEXIDINE GLUCONATE 0.12 % 15ML UDC (PERIDEX ORAL RINSE) MT SCH (07:41)
--- NOTE | 2018-12-10 09:41 | CCN ---
DATE OF SERVICE: 12/10/2018 The patient is seen in the intensive care unit (ICU). He is on mechanical ventilation with plans to extubate today as he is following commands adequately. Nursing notes no issues overnight. The patient is anxious to be extubated. No fevers or chills. PHYSICAL EXAMINATION: Vital signs: Temperature 99.0, pulse 95, respiratory rate 22, blood pressure is 106/68, pulse oximetry 98% on ventilator set at volume control with a tidal volume of 400, a rate of 20, PEEP of 5, FIO2 of 30. General: The patient is alert. He is able to follow commands and able to communicate with a letter board. HEENT: Head is normocephalic, atraumatic. Moist mucous membranes. Neck: Neck is supple. No cervical lymphadenopathy. No jugular venous distention (JVD). Trachea is midline. Heart: Regular rate and rhythm. S1, S2. No murmurs. Pulmonary: Clear to auscultation bilaterally. No wheezes, rales, rhonchi, or crackles. No accessory muscle use. Abdomen: Positive bowel sounds, soft, nontender. No rebound or guarding. Extremities: No clubbing, cyanosis, or edema. LABORATORY DATA: WBC 9.7, hemoglobin 10.8, hematocrit 32.5, platelets 308. Sodium 146, potassium 4.0, chloride 116, carbon dioxide 24, BUN 10, creatinine 0.94, glucose 107, calcium 7.6. ARTERIAL BLOOD GAS (ABG): pH 7.461, pCO2 32.8, pO2 161.4. Blood cultures showed no growth after 24 hours. Cerebrospinal fluid (CSF) culture is pending. CSF PCP for meningitis and encephalitis is negative. ASSESSMENT AND PLAN: 1. Acute respiratory failure secondary to altered mental status likely secondary to overdose. The patient was successfully extubated today. No signs of infection. CSF PCP for meningitis and encephalitis was negative. Blood cultures are negative after 24 hours, and a CSF culture is pending. Low probability of infectious etiology. The patient will be transferred to the hospitalist service, and we will sign off. 2. Elevated CK. The patient has been receiving intravenous (IV) fluids. Will check another CK. 3. Deep venous thrombosis (DVT) prophylaxis with Lovenox. 4. Gastrointestinal (GI) prophylaxis with Protonix. Pulmonary will sign off on this patient and transfer him to the hospitalist service.
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
--- NOTE | 2018-12-10 13:59 | IPNPDOC ---
Text Note Date of Service The patient was seen on 12/10/18. NOTE The patient is seen by me this morning. The patient was initially admitted to the intensive care unit service yesterday because of respiratory failure and altered mental status, possibly secondary to drug overdose. The patient was extubated successfully this morning and the patient was transferred to hospice service. The patient on my encounter is alert but not oriented to time, place and person. He is following, aunts, and responding well, though. No family member at the bedside. He has no suicidal ideations or any ideations of harming anybody else PHYSICAL EXAMINATION: General: The patient is alert. He is able to follow commands .he is on sitting questions appropriately but does not remember why he is here. HEENT: Head is normocephalic, atraumatic. Moist mucous membranes. Neck: Neck is supple. No cervical lymphadenopathy. No jugular venous distention (JVD). Trachea is midline. Heart: Regular rate and rhythm. S1, S2. No murmurs. Pulmonary: Clear to auscultation bilaterally. No wheezes, rales, rhonchi, or crackles. No accessory muscle use. Abdomen: Positive bowel sounds, soft, nontender. No rebound or guarding. Extremities: No clubbing, cyanosis, or edema. Blood cultures showed no growth after 24 hours. Cerebrospinal fluid (CSF) culture is pending. CSF PCP for meningitis and encephalitis is negative. ASSESSMENT AND PLAN: 1. Acute respiratory failure secondary to altered mental status likely secondary to overdose. The patient was successfully extubated today. No signs of infection. CSF PCP for meningitis and encephalitis was negative. Blood cultures are negative after 24 hours, and a CSF culture is pending. Low pr obability of infectious etiology. We will continue respiratory toileting. Continue pulse ox. Avoid any narcotics. 2. Elevated CK. Continue to trend and continue IV fluids. Input output monitoring and daily renal function monitoring 3. Drug abuse: I spoke with the psychiatrist as he probably has some psychiatric issues and drug abuse issues. 4. Gastrointestinal (GI) prophylaxis with Protonix. And DVT prophylaxis Disposition unknown at this time VS,Fishbone, I+O VS, Fishbone, I+O Laboratory Tests 12/10/18 04:43 Vital Signs Date Time Temp Pulse Resp B/P (MAP) Pulse Ox O2 Delivery O2 Flow Rate FiO2 12/10/18 12:28 98.8 98 18 111/68 (82) 100 Room Air 12/10/18 09:25 5.0 28 I&O- Last 24 Hours up to 6 AM0 12/10/18 06:00 Intake Total 3992.4 ml Output Total 2065 ml Balance 1927.4 ml ALESIA HAYS MD Dec 10, 2018 13:59
[2018-12-10] MEDS ORDERED: ACETAMINOPHEN 500 MG TAB PO ONE (15:45)
--- NOTE | 2018-12-10 23:23 | REP ---
Clinical: Respiratory failure . Comparison: 12/08/2018 . Findings: Endotracheal tube 3.5 cm above the bambi. Nasogastric tube courses below left hemidiaphragm. The mediastinum and cardiac silhouette are stable and within normal limits for portable technique. The lung jaimes are clear without acute consolidation, effusion, or pneumothorax. Skeletal structures are intact. Impression: No focal consolidation or effusion appreciated. Electronically Signed by Kofi Sullivan MD 12/10/2018 08:22 A
[2018-12-11] VITALS: BP 106/65
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
[2018-12-11 04:00] VITALS: BP 128/74
--- NOTE | 2018-12-11 04:29 | IPNPDOC ---
Text Note Date of Service The patient was seen on 12/11/18. NOTE Transfer patient from ICU to PCU status. He is stable clinically. He has been extubated. He is tolerating by mouth food. Pulmonary team has signed off, patient is currently under care of hospitalist team. PE VITALS: See Below GENERAL APPEARANCE: Alert no acute distress. Alert, answers questions appropriately LUNGS: Clear to auscultation bilaterally. HEART: Normal S1, S2. No murmurs, no rubs, no gallops EXTREMITIES: Moves all extremities equally. No gross deformities. PULSES: 2+ upper and lower extremity . Assessment, plan, Continue routine care under hospitalist team. VS,Fishbone, I+O VS, Fishbone, I+O Laboratory Tests 12/10/18 04:43 Vital Signs Date Time Temp Pulse Resp B/P (MAP) Pulse Ox O2 Delivery O2 Flow Rate FiO2 12/11/18 00:00 98.3 101 20 106/65 (79) 99 Room Air 12/10/18 09:25 5.0 28 I&O- Last 24 Hours up to 6 AM 12/11/18 06:00 Intake Total 3647.1 ml Output Total 3625 ml Balance 22.1 ml MYNOR LYONS DO Dec 11, 2018 04:29
[2018-12-11] MEDS ORDERED: ALBUTEROL 90 MCG/ACT 8GM HFA INHALER INH PRN (04:30)
[2018-12-11 05:01] LABS: HEMATOCRIT 37.8 % (42.0-52.0); HEMOGLOBIN 12.2 g/dl (13.5-17.5); MEAN CORPUSCULAR HGB CONC 32.3 g/dl (32.0-36.5); MEAN CORPUSCULAR VOLUME 92.9 fl (80.0-96.0); PLATELET COUNT, AUTOMATED 329 10^3/uL (150-450); RED BLOOD COUNT 4.07 10^6/uL (4.30-6.10); WHITE BLOOD COUNT 7.2 10^3/uL (4.0-10.0)
[2018-12-11] MEDS: KCL 40MEQ IN D5/0.45NS 1000ML 1,000 ML IV SCH (05:23)
[2018-12-11 05:40] LABS: BLOOD UREA NITROGEN 5 MG/DL (7-18); CALCIUM LEVEL 8.4 MG/DL (8.5-10.1); CARBON DIOXIDE LEVEL 27 MEQ/L (21-32); CHLORIDE LEVEL 113 MEQ/L (98-107); CPK CREATINE PHOSPHOKINASE 6243 U/L (39-308); CREATININE FOR GFR 0.87 MG/DL (0.70-1.30); GLOMERULAR FILTRATION RATE > 60.0 (>60); GLUCOSE, FASTING 82 MG/DL (70-100); POTASSIUM SERUM 4.2 MEQ/L (3.5-5.1); SODIUM LEVEL 143 MEQ/L (136-145)
[2018-12-11 07:51] VITALS: BP 89/52
[2018-12-11] MEDS: PANTOPRAZOLE 40MG INJ (PROTONIX) (C9113) IV SCH (07:52)
[2018-12-11] MEDS: ENOXAPARIN 40 MG/0.4 ML SYRINGE (J1650) SC SCH (07:52)
[2018-12-11] MEDS: NS 1,000 ML IV SCH ×2 (08:45→17:42)
[2018-12-11] MEDS ORDERED: ADDERALL 5 MG TAB PO ONE (09:00)
[2018-12-11] MEDS ORDERED: buPROPion **XL** TABLET 150MG (WELLBUTRIN XL) PO SCH (09:00)
[2018-12-11] MEDS ORDERED: clonazePAM 1 MG TAB PO SCH (09:00)
[2018-12-11] MEDS ORDERED: GABAPENTIN 300 MG CAP PO SCH ×2 (09:00→21:00)
[2018-12-11] MEDS ORDERED: ESCITALOPRAM OXALATE 10 MG TAB (LEXAPRO) PO SCH (09:00)
[2018-12-11] MEDS ORDERED: CARISOPRODOL 350 MG TAB PO SCH (09:00)
--- NOTE | 2018-12-11 11:24 | IPNPDOC ---
Text Note Date of Service The patient was seen on 12/11/18. NOTE The patient is seen by me this morning. No family member at the bedside. He has no suicidal ideations or any ideations of harming anybody else PHYSICAL EXAMINATION: General: The patient is alert. He is able to follow commands . HEENT: Head is normocephalic, atraumatic. Moist mucous membranes. Neck: Neck is supple. No cervical lymphadenopathy. No jugular venous distention (JVD). Trachea is midline. Heart: Regular rate and rhythm. S1, S2. No murmurs. Pulmonary: Clear to auscultation bilaterally. No wheezes, rales, rhonchi, or crackles. No accessory muscle use. Abdomen: Positive bowel sounds, soft, nontender. No rebound or guarding. Extremities: No clubbing, cyanosis, or edema. Blood cultures showed no growth after 24 hours. Cerebrospinal fluid (CSF) culture is pending. CSF PCP for meningitis and encephalitis is negative. ASSESSMENT AND PLAN: 1. Acute respiratory failure secondary to altered mental status likely secondary to overdose. The patient was successfully extubated today. No signs of infection. CSF PCP for meningitis and encephalitis was negative. Blood cultures are negative after 24 hours, and a CSF culture is pending. Low probability of infectious etiology. We will continue respiratory toileting. Continue pulse ox. Avoid any narcotics. 2. Elevated CK. Continue to trend and continue IV fluids. Input output monitoring and daily renal function monitoring 3. Drug abuse: I spoke with the psychiatrist as he probably has some psychiatric issues and drug abuse issues. 4. Gastrointestinal (GI) prophylaxis with Protonix. And DVT prophylaxis Disposition unknown at this time VS,Caprice, I+O VS, Olesyae, I+O Laboratory Tests 12/11/18 04:40 Vital Signs Date Time Temp Pulse Resp B/P (MAP) Pulse Ox O2 Delivery O2 Flow Rate FiO2 12/11/18 07:51 97.3 92 16 89/52 (64) 98 Room Air 12/10/18 09:25 5.0 28 I&O- Last 24 Hours up to 6 AM 12/11/18 06:00 Intake Total 4217.1 ml Output Total 5175 ml Balance -957.9 ml ALESIA HAYS MD Dec 11, 2018 11:24
[2018-12-11 14:17] VITALS: BP 110/75
[2018-12-11 15:15] VITALS: BP 112/75
[2018-12-11 22:00] VITALS: BP 112/75
[2018-12-12] MEDS: NS 1,000 ML IV SCH ×2 (04:36→15:00)
[2018-12-12 06:00] VITALS: BP 118/80
[2018-12-12 06:37] LABS: HEMATOCRIT 38.3 % (42.0-52.0); HEMOGLOBIN 12.5 g/dl (13.5-17.5); MEAN CORPUSCULAR HEMOGLOBIN 30.9 pg (27.0-33.0); MEAN CORPUSCULAR HGB CONC 32.6 g/dl (32.0-36.5); MEAN CORPUSCULAR VOLUME 94.6 fl (80.0-96.0); PLATELET COUNT, AUTOMATED 346 10^3/uL (150-450); RED BLOOD COUNT 4.05 10^6/uL (4.30-6.10); WHITE BLOOD COUNT 6.9 10^3/uL (4.0-10.0)
[2018-12-12 07:03] LABS: BLOOD UREA NITROGEN 8 MG/DL (7-18); CALCIUM LEVEL 9.1 MG/DL (8.5-10.1); CARBON DIOXIDE LEVEL 29 MEQ/L (21-32); CHLORIDE LEVEL 107 MEQ/L (98-107); CREATININE FOR GFR 0.98 MG/DL (0.70-1.30); GLOMERULAR FILTRATION RATE > 60.0 (>60); GLUCOSE, FASTING 103 MG/DL (70-100); POTASSIUM SERUM 3.9 MEQ/L (3.5-5.1); SODIUM LEVEL 140 MEQ/L (136-145)
[2018-12-12] MEDS: ENOXAPARIN 40 MG/0.4 ML SYRINGE (J1650) SC SCH (08:26)
[2018-12-12] MEDS: PANTOPRAZOLE 40MG INJ (PROTONIX) (C9113) IV SCH (08:26)
[2018-12-12 08:59] LABS: CPK CREATINE PHOSPHOKINASE 3019 U/L (39-308)
--- NOTE | 2018-12-12 10:52 | IPNPDOC ---
Text Note Date of Service The patient was seen on 12/12/18. NOTE The patient is seen by me this morning. No family member at the bedside. He has no suicidal ideations or any ideations of harming anybody else PHYSICAL EXAMINATION: General: The patient is alert. He is able to follow commands . HEENT: Head is normocephalic, atraumatic. Moist mucous membranes. Neck: Neck is supple. No cervical lymphadenopathy. No jugular venous distention (JVD). Trachea is midline. Heart: Regular rate and rhythm. S1, S2. No murmurs. Pulmonary: Clear to auscultation bilaterally. No wheezes, rales, rhonchi, or crackles. No accessory muscle use. Abdomen: Positive bowel sounds, soft, nontender. No rebound or guarding. Extremities: No clubbing, cyanosis, or edema. Blood cultures showed no growth after 24 hours. Cerebrospinal fluid (CSF) culture is pending. CSF PCP for meningitis and encephalitis is negative. ASSESSMENT AND PLAN: 1. Acute respiratory failure secondary to altered mental status likely secondary to overdose. The patient was successfully extubated on 12/10/18. No signs of infection. CSF PCP for meningitis and encephalitis was negative. Blood cultures are negative after 24 hours, and a CSF culture negative Low probability of infectious etiology. 2. Elevated CK. Still in 3000. Continue to trend and continue IV fluids. Input output monitoring and daily renal function monitoring 3. Drug abuse: I spoke with the psychiatrist as he probably has some psychiatric issues and drug abuse issues. 4. Gastrointestinal (GI) prophylaxis with Protonix. And DVT prophylaxis Disposition likely home tomorrow if the CK continues to trend down and the kidney function is okay VS,Bryanbone, I+O VS, Fishbone, I+O Laboratory Tests 12/12/18 05:39 Vital Signs Date Time Temp Pulse Resp B/P (MAP) Pulse Ox O2 Delivery O2 Flow Rate FiO2 12/12/18 06:00 98.6 78 18 118/80 (93) 99 Room Air 12/10/18 09:25 5.0 28 I&O- Last 24 Hours up to 6 AM 12/12/18 06:00 Intake Total 2947.5 ml Output Total 1800 ml Balance 1147.5 ml ALESIA HAYS MD Dec 12, 2018 10:52
[2018-12-12 15:00] VITALS: BP 115/78
[2018-12-12 22:00] VITALS: BP 127/80
[2018-12-13] MEDS: NS 1,000 ML IV SCH ×2 (01:01→11:00)
[2018-12-13 06:00] VITALS: BP 123/80
[2018-12-13 06:58] LABS: HEMATOCRIT 40.1 % (42.0-52.0); MEAN CORPUSCULAR HEMOGLOBIN 30.5 pg (27.0-33.0); MEAN CORPUSCULAR HGB CONC 32.4 g/dl (32.0-36.5); MEAN CORPUSCULAR VOLUME 94.1 fl (80.0-96.0); PLATELET COUNT, AUTOMATED 347 10^3/uL (150-450); RED BLOOD COUNT 4.26 10^6/uL (4.30-6.10); WHITE BLOOD COUNT 7.6 10^3/uL (4.0-10.0)
[2018-12-13 07:22] LABS: BLOOD UREA NITROGEN 12 MG/DL (7-18); CALCIUM LEVEL 8.9 MG/DL (8.5-10.1); CARBON DIOXIDE LEVEL 28 MEQ/L (21-32); CHLORIDE LEVEL 107 MEQ/L (98-107); CREATININE FOR GFR 0.93 MG/DL (0.70-1.30); GLOMERULAR FILTRATION RATE > 60.0 (>60); GLUCOSE, FASTING 91 MG/DL (70-100); POTASSIUM SERUM 3.9 MEQ/L (3.5-5.1); SODIUM LEVEL 142 MEQ/L (136-145)
[2018-12-13 09:16] LABS: CPK CREATINE PHOSPHOKINASE 1252 U/L (39-308)
[2018-12-13] MEDS: PANTOPRAZOLE 40MG INJ (PROTONIX) (C9113) IV SCH (09:22)
[2018-12-13] MEDS: ENOXAPARIN 40 MG/0.4 ML SYRINGE (J1650) SC SCH (09:22)
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
== END 2018-12-13 13:18 | disposition home or self-care (01) | DRG 812 ==
LOC: M ED 21:07 → M ED INP 12-09 04:29 → M ICU 12-09 05:32 → M MS5PR 12-11 15:09
PROVIDERS: ADMIT Internal Medicine Pulmonary Disease; ATTEND Internal Medicine
PROC: 5A1945Z Respiratory Ventilation, 24-96 Consecutive Hours (ICD-10-PCS; principal; 2018-12-09)
DX: T40.8X1A Poisoning by lysergide [LSD], accidental (unintentional), initial encounter (principal); R40.20 Unspecified coma; J96.00 Acute respiratory failure, unspecified whether with hypoxia or hypercapnia; M62.82 Rhabdomyolysis; F43.10 Post-traumatic stress disorder, unspecified; F90.9 Attention-deficit hyperactivity disorder, unspecified type; F16.122 Hallucinogen abuse with intoxication with perceptual disturbance; F15.122 Other stimulant abuse with intoxication with perceptual disturbance; Z79.899 Other long term (current) drug therapy

== ENCOUNTER 2019-02-06 09:10 | Emergency (ER) | payer OTHER ==
[~2019-02-06] VITALS: Ht 170.2 cm; Wt 61.4 kg
[~2019-02-06 09:10] MED LIST changes: +ADDE30TA PO; +BUPR150T3 PO; +CARI1TAB7 PO; +CLON2TAB7 PO; +D200CAP PO; +ESCI20TA PO; +GABA-843 PO; +PATIENT COMMENT; +VENTAER INH
[2019-02-06] MEDS ORDERED: AMPHETA/DEXTRO (09:18)
[2019-02-06 10:12] LABS: BASO # 0.1 10^3/uL (0.0-0.2); BASO % 0.5 % (0.0-1.0); EOS # 0.2 10^3/uL (0.0-0.5); EOS % 1.2 % (0.0-3.0); HEMATOCRIT 41.9 % (42.0-52.0); HEMOGLOBIN 13.8 g/dl (13.5-17.5); LYMPH # 1.4 10^3/uL (1.5-5.0); LYMPH % 10.6 % (24.0-44.0); MEAN CORPUSCULAR HEMOGLOBIN 30.1 pg (27.0-33.0); MEAN CORPUSCULAR HGB CONC 32.9 g/dl (32.0-36.5); MEAN CORPUSCULAR VOLUME 91.3 fl (80.0-96.0); MONO # 1.2 10^3/uL (0.0-0.8); MONO % 9.1 % (0.0-5.0); NEUTROPHILS # 10.2 10^3/uL (1.5-8.5); NEUTROPHILS % 78.3 % (36.0-66.0); PLATELET COUNT, AUTOMATED 368 10^3/uL (150-450); RED BLOOD COUNT 4.59 10^6/uL (4.30-6.10)
[2019-02-06 10:39] LABS: BLOOD UREA NITROGEN 13 MG/DL (7-18); CALCIUM LEVEL 8.9 MG/DL (8.5-10.1); CARBON DIOXIDE LEVEL 30 MEQ/L (21-32); CHLORIDE LEVEL 102 MEQ/L (98-107); CREATININE FOR GFR 1.12 MG/DL (0.70-1.30); GLOMERULAR FILTRATION RATE > 60.0 (>60); GLUCOSE, FASTING 95 MG/DL (70-100); POTASSIUM SERUM 4.2 MEQ/L (3.5-5.1); SODIUM LEVEL 138 MEQ/L (136-145)
--- NOTE | 2019-02-06 10:39 | REP ---
RIGHT FOOT, FOUR VIEWS: There is no evidence of an acute fracture, dislocation or intrinsic bone disease. The metatarsophalangeal joints are unremarkable in appearance. IMPRESSION: No fracture or dislocation. Electronically Signed by Steven Esquivel MD 02/06/2019 04:45 P
[2019-02-06 10:43] LABS: ERYTHROCYTE SEDIMENTATION RATE 47 mm/hr (0-15)
[2019-02-06 11:06] LABS: RHEUMATOID FACTOR QUANT < 10.0 IU/ML (<15.0)
[2019-02-06] MEDS ORDERED: INDO50CA91 PO (11:35)
[2019-02-06 11:44] VITALS: BP 115/70
[2019-02-07 15:17] LABS: ANTINUCLEAR ANTIBODIES DIRECT Negative (Negative)
== END 2019-02-06 11:51 | disposition home or self-care (01) ==
LOC: M ED 09:10
DX: M10.9 Gout, unspecified (principal); M79.674 Pain in right toe(s); J45.909 Unspecified asthma, uncomplicated; K21.9 Gastro-esophageal reflux disease without esophagitis; F12.90 Cannabis use, unspecified, uncomplicated; F90.9 Attention-deficit hyperactivity disorder, unspecified type; Z79.51 Long term (current) use of inhaled steroids; Z79.899 Other long term (current) drug therapy

== ENCOUNTER → 2019-02-16 | Outpatient (REF) | payer OTHER ==
[~2019-02-16] MED LIST changes: +AMPHETA/DEXTRO; +INDO50CA91 PO
[2019-02-16 12:32] LABS: ALBUMIN 3.8 GM/DL (3.2-5.2); ALT/SGPT 19 U/L (12-78); BILIRUBIN,TOTAL 0.1 MG/DL (0.2-1.0); BLOOD UREA NITROGEN 21 MG/DL (7-18); CALCIUM LEVEL 9.3 MG/DL (8.5-10.1); CARBON DIOXIDE LEVEL 28 MEQ/L (21-32); CHLORIDE LEVEL 107 MEQ/L (98-107); CREATININE FOR GFR 1.19 MG/DL (0.70-1.30); GLOMERULAR FILTRATION RATE > 60.0 (>60); GLUCOSE, FASTING 88 MG/DL (70-100); POTASSIUM SERUM 4.2 MEQ/L (3.5-5.1); SODIUM LEVEL 142 MEQ/L (136-145)
[2019-02-16 12:42] LABS: HEMOGLOBIN A1c 5.6 %
== END ==
LOC: M LABDRAW1 11:35
PROVIDERS: ATTEND Family Medicine
DX: M10.9 Gout, unspecified (principal); R20.2 Paresthesia of skin

== ENCOUNTER 2019-03-13 12:45 | Emergency (ER) | payer OTHER ==
[~2019-03-13] VITALS: Ht 170.2 cm; Wt 136.0 kg
[2019-03-13] MEDS ORDERED: ADACEL/BOOSTRIX VACCINE (DIPHTH/PERTUSS/ACELL/TETANUS)0.5ML SYR (90715) IM ONE (13:15)
[2019-03-13] MEDS ORDERED: AMPHETA/DEXTRO PO (13:18)
[2019-03-13] MEDS ORDERED: VITA30004 PO (13:18)
--- NOTE | 2019-03-13 13:58 | REP ---
Left index finger: Four views. History: Injury to the left index finger. Findings: There is a soft tissue laceration in the distal phalanx of the index finger along its radial side. No distal tuft fracture is seen. No opaque foreign body is seen. Impression: Soft tissue laceration seen at the distal tip of the index finger. No fracture or opaque foreign body seen. Electronically Signed by Hemanth Spencer MD 03/13/2019 01:50 P
[2019-03-13] MEDS ORDERED: LIDOCAINE 1% MDV 20ML VIAL SC ONE (14:15)
[2019-03-13] MEDS ORDERED: KEFL500C17 PO (14:51)
[2019-03-13 14:59] VITALS: BP 107/67
[2019-03-13] MEDS ORDERED: BACITRACIN OINT 30GM TOP ONE (15:00)
== END 2019-03-13 15:03 | disposition home or self-care (01) ==
LOC: M ED 12:45
DX: S61.311A Laceration without foreign body of left index finger with damage to nail, initial encounter (principal); W27.2XXA Contact with scissors, initial encounter; Y92.019 Unspecified place in single-family (private) house as the place of occurrence of the external cause; M10.9 Gout, unspecified; F41.9 Anxiety disorder, unspecified; F33.9 Major depressive disorder, recurrent, unspecified; F17.210 Nicotine dependence, cigarettes, uncomplicated; Z79.51 Long term (current) use of inhaled steroids; Z79.899 Other long term (current) drug therapy

== ENCOUNTER 2019-08-24 15:54 | Inpatient (IN) | payer OTHER ==
[~2019-08-24] VITALS: Ht 170.2 cm; Wt 56.0 kg
[~2019-08-24 15:54] MED LIST changes: +AMPHETA/DEXTRO PO; +KEFL500C17 PO; +VITA30004 PO
[2019-08-24] MEDS ORDERED: TRAZ-252 PO (16:12)
[2019-08-24] MEDS ORDERED: MACR100C43 PO (16:12)
[2019-08-24 16:39] LABS: BASO # 0.1 10^3/uL (0.0-0.2); BASO % 0.5 % (0.0-1.0); EOS % 0.2 % (0.0-3.0); HEMATOCRIT 39.5 % (42.0-52.0); HEMOGLOBIN 13.4 g/dl (13.5-17.5); LYMPH # 1.5 10^3/uL (1.5-5.0); LYMPH % 12.2 % (24.0-44.0); MEAN CORPUSCULAR HEMOGLOBIN 29.1 pg (27.0-33.0); MEAN CORPUSCULAR HGB CONC 33.9 g/dl (32.0-36.5); MEAN CORPUSCULAR VOLUME 85.7 fl (80.0-96.0); MONO # 0.9 10^3/uL (0.0-0.8); NEUTROPHILS # 9.9 10^3/uL (1.5-8.5); NEUTROPHILS % 79.8 % (36.0-66.0); PLATELET COUNT, AUTOMATED 382 10^3/uL (150-450); RED BLOOD COUNT 4.61 10^6/uL (4.30-6.10); WHITE BLOOD COUNT 12.4 10^3/uL (4.0-10.0)
[2019-08-24 17:15] LABS: ACETAMINOPHEN LEVEL < 2.0 UG/ML (10.0-30.0); ALBUMIN 4.4 GM/DL (3.2-5.2); ALT/SGPT 27 U/L (12-78); BILIRUBIN,DIRECT 0.1 MG/DL (0.0-0.2); BILIRUBIN,TOTAL 0.4 MG/DL (0.2-1.0); BLOOD UREA NITROGEN 13 MG/DL (7-18); CALCIUM LEVEL 8.6 MG/DL (8.5-10.1); CARBON DIOXIDE LEVEL 25 MEQ/L (21-32); CHLORIDE LEVEL 109 MEQ/L (98-107); CREATININE FOR GFR 0.96 MG/DL (0.70-1.30); ETHYL ALCOHOL (ETHANOL) 0.005 % (0.000-0.010); GLOMERULAR FILTRATION RATE > 60.0 (>60); GLUCOSE, FASTING 96 MG/DL (70-100); POTASSIUM SERUM 3.7 MEQ/L (3.5-5.1); SALICYLATE LEVEL 4.4 MG/DL (5.0-30.0); SODIUM LEVEL 140 MEQ/L (136-145); TOTAL PROTEIN 7.7 GM/DL (6.4-8.2)
[2019-08-24] MEDS ORDERED: NS 1,000 ML IV ONE ×2 (17:15→20:45)
--- NOTE | 2019-08-24 17:15 | REPVR ---
PROCEDURE INFORMATION: Exam: CT Head Without Contrast Exam date and time: 08/24/2019 4:59 PM Age: 34 years old Clinical indication: Altered mental status/memory loss; Confusion or disorientation TECHNIQUE: Imaging protocol: Computed tomography of the head without contrast. Axial and coronal reformatted images were created and reviewed. Radiation optimization: All CT scans at this facility use at least one of these dose optimization techniques: automated exposure control; mA and/or kV adjustment per patient size (includes targeted exams where dose is matched to clinical indication); or iterative reconstruction. COMPARISON: CT Head without contrast 12/08/2018 11:19 PM FINDINGS: Brain: No CT evidence of acute intracranial hemorrhage or acute territorial infarction. No significant mass effect or midline shift. Basal cisterns patent. Ventricles: Normal in size and configuration. Bones/joints: No acute osseous abnormality. Sinuses: Grossly unremarkable. Mastoid air cells: Grossly unremarkable. Soft tissues: Grossly unremarkable. IMPRESSION: No CT evidence of acute intracranial pathology. Electronically signed by: Andrea Wong On 08/24/2019 17:15:38 PM
[2019-08-24] MEDS ORDERED: LORazepam 2 MG/ML VIAL IV STA ×3 (20:44→21:20)
[2019-08-24] MEDS ORDERED: LORazepam 2 MG/ML VIAL As Ordered ONE ×2 (20:47→21:08)
[2019-08-24] MEDS ORDERED: HALOPERIDOL 5MG/ML VIAL (J1630 PER 1) As Ordered ONE (21:29)
[2019-08-24] MEDS ORDERED: diphenhydrAMINE 50MG/ML VIAL (J1200) As Ordered ONE (21:29)
[2019-08-24] MEDS ORDERED: HALOPERIDOL 5MG/ML VIAL (J1630 PER 1) IM ONE (21:30)
[2019-08-24] MEDS ORDERED: diphenhydrAMINE 50MG/ML VIAL (J1200) IM ONE (21:30)
[2019-08-24 22:20] LABS: CPK CREATINE PHOSPHOKINASE 388 U/L (39-308)
[2019-08-25 00:39] LABS: AMPHETAMINES LEVEL URINE POSITIVE (NEGATIVE); BARBITURATES URINE NEGATIVE (NEGATIVE); BENZODIAZEPINES URINE NEGATIVE (NEGATIVE); CANNABINOIDS URINE POSITIVE (NEGATIVE); COCAINE METABOLITE URINE NEGATIVE (NEGATIVE); METHADONE URINE NEGATIVE (NEGATIVE); OPIATES URINE NEGATIVE (NEGATIVE); PHENCYCLIDINE URINE NEGATIVE (NEGATIVE)
[2019-08-25] MEDS ORDERED: LORazepam 2 MG/ML VIAL IV STA (02:41)
[2019-08-25] MEDS ORDERED: LORazepam 2 MG/ML VIAL As Ordered ONE (02:44)
--- NOTE | 2019-08-25 03:15 | HPEPDOC ---
[facility] Medical History & Physical Date of Admission Aug 25, 2019 Date of Service: Aug 25, 2019 Primary Care Physician: ANGELIC PHELAN DO Attending Physician: GILBERTO ALCANTAR MD History and Physical TIME OF SERVICE: 4:20 AM CHIEF COMPLAINT: Altered mental status HISTORY OF PRESENT ILLNESS: The patient was too sedated to give me any history; initially when he arrived in the ER, he been very agitated and combative, required restraints, and received about 12 mg of Ativan haloperidol and Benadryl. Per Dr. Colon this 34-year-old gentleman was brought in by EMS because of altered mental status. He appeared to be hallucinating and told staff that he saw people being murdered at the nurse's station. At the time of my assessment, he was not arousable and unable to answer any questions. REVIEW OF SYSTEMS: unobtainable PAST MEDICAL/ SURGICAL HISTORY: unobtainable SOCIAL HISTORY: polysubstance abuse, drug screens have been positive for amphetamines and cannabinoids FAMILY HISTORY: unobtainable ALLERGIES: Please see below. HOME MEDICATIONS: Please see below. PHYSICAL EXAMINATION: Vital Signs Date Time Temp Pulse Resp B/P (MAP) Pulse Ox O2 Delivery O2 Flow Rate FiO2 08/24/19 16:02 132/85 (101) 08/24/19 16:02 99.3 91 18 96 08/24/19 19:09 Room Air GEN: Slim build / NAD HEENT: NCAT / NC in place CVS: RRR/NMRG LUNGS: lungs are clear to auscultation bilaterally on room air ABDOMEN: soft with palpation MSK/EXTREMITIES: range of motion intact in all 4 extremities / no scoliosis / no kyphosis NEURO: pupils are pinpoint/ he's not responding to attempted Babinski reflex PSYCH: sedated LABORATORY DATA: 08/24/19 16:17 Immature Granulocyte % (Auto) 0.3, Neutrophils (%) (Auto) 79.8H, Lymphocytes (%) (Auto) 12.2L, Monocytes (%) (Auto) 7.0H, Eosinophils (%) (Auto) 0.2, Basophils (%) (Auto) 0.5, Neutrophils # (Auto) 9.9H, Lymphocytes # (Auto) 1.5, Monocytes # (Auto) 0.9H, Eosinophils # (Auto) 0.0, Basophils # (Auto) 0.1, Nucleated Red Blood Cells % (auto) 0.0, POC Troponin I (Misc) 0.01, Anion Gap 6L, Glomerular Filtration Rate > 60.0, Calcium Level 8.6, Total Bilirubin 0.4, Direct Bilirubin 0.1, Aspartate Amino Transf (AST/SGOT) 24, Alanine Aminotransferase (ALT/SGPT) 27, Alkaline Phosphatase 77, Total Creatine Kinase 388H, Total Protein 7.7, Albumin 4.4, Albumin/Globulin Ratio 1.3, Thyroid Stimulating Hormone (TSH) 1.240, Salicylates Level 4.4L, Acetaminophen Level < 2.0L, Ethyl Alcohol Level 0.005 08/25/19 00:07: Urine Color YELLOW, Urine Appearance CLEAR, Urine pH 6.0, Urine Specific [place] 1.010, Urine Protein NEGATIVE, Urine Glucose (UA) NEGATIVE, Urine Ketones TRACEH, Urine Blood NEGATIVE, Urine Nitrite NEGATIVE, Urine Bilirubin NEGATIVE, Urine Urobilinogen 0.2, Urine Leukocyte Esterase NEGATIVE, Urine WBC (Auto) 0, Urine RBC (Auto) 1, Urine Hyaline Casts (Auto) 0, Urine Bacteria (Auto) NEGATIVE, Urine Squamous Epithelial Cells 0, Urine Mucus (Auto) SMALL, Urine Sperm (Auto) IMAGING: CT head "IMPRESSION: No CT evidence of acute intracranial pathology. " Chest xray appears unremarkable but the final read is pending ASSESSMENT: Mr. Hoffmann is a 34-year-old with an unknown medical history was brought in by EMS because of agitation and hallucinations; history of screen was positive for amphetamines and THC; it is possible he also took some other substances that are not captured on her drug screen. He is currently sedated and will be admitted to ICU until he is more alert . PLAN: 1. Metabolic Encephalopathy 2/2 a combination of polysubstance abuse and medical sedation Plan: admit to ICU / neurochecks, fall and seizure precautions / NPO / IVF / sitter 2. Mild Rhabdomyolysis 2/2 polysubstance ingestion Plan: IVF / trend CPK 3. Leukocytosis Likely reactive 2/2 polysubstance abuse Plan: f/u CBC and final chest xray report 4. HTN? Plan: monitor vitals DVT PROPHYLAXIS: SCDs DISPOSITION Likely home after more than 2 midnight's stay Home Medications No Active Prescriptions or Reported Meds Allergies Coded Allergies: No Known Allergies (Verified , 12/08/18) A-FIB/CHADSVASC A-FIB History Current/History of A-Fib/PAF?: No Current PO Anticoag Therapy: No GILBERTO ALCANTAR MD Aug 25, 2019 03:15
[2019-08-25 04:53] VITALS: BP 106/70
[2019-08-25] MEDS: NS 1,000 ML IV SCH ×5 (05:10→23:38)
[2019-08-25 05:52] LABS: HEMATOCRIT 40.8 % (42.0-52.0); HEMOGLOBIN 13.5 g/dl (13.5-17.5); MEAN CORPUSCULAR HEMOGLOBIN 29.1 pg (27.0-33.0); MEAN CORPUSCULAR HGB CONC 33.1 g/dl (32.0-36.5); MEAN CORPUSCULAR VOLUME 87.9 fl (80.0-96.0); RED BLOOD COUNT 4.64 10^6/uL (4.30-6.10); WHITE BLOOD COUNT 11.9 10^3/uL (4.0-10.0)
[2019-08-25 05:53] LABS: PLATELET COUNT, AUTOMATED 364 10^3/uL (150-450)
[2019-08-25 06:34] LABS: BLOOD UREA NITROGEN 11 MG/DL (7-18); CALCIUM LEVEL 8.7 MG/DL (8.5-10.1); CARBON DIOXIDE LEVEL 26 MEQ/L (21-32); CHLORIDE LEVEL 112 MEQ/L (98-107); CPK CREATINE PHOSPHOKINASE 1295 U/L (39-308); CREATININE FOR GFR 0.93 MG/DL (0.70-1.30); GLOMERULAR FILTRATION RATE > 60.0 (>60); GLUCOSE, FASTING 79 MG/DL (70-100); POTASSIUM SERUM 4.4 MEQ/L (3.5-5.1); SODIUM LEVEL 145 MEQ/L (136-145)
[2019-08-25 08:00] VITALS: BP 113/77
--- NOTE | 2019-08-25 08:05 | ECGEPIP ---
[facility] - ED Test Date: 2019-08-24 Pat Name: MELY SIMON Department: Room: - Gender: Male [employer]: JFAYAAN : 1985 Requested By: OSMANI Collazo Order Number: [id number] Reading MD: Romulo Coronado Measurements Intervals [place] Rate: 85 P: 74 VA: 153 QRS: 71 QRSD: 97 T: 29 QT: 362 QTc: 431 Interpretive Statements SINUS RHYTHM POOR R WAVE PROGRESSION POSSIBLE INCOMPLETE RIGHT BUNDLE BRANCH BLOCK SIMILAR TO 12/08/18 Electronically Signed on 08-25-2019 8:05:24 EDT by Romulo Coronado
[2019-08-25] MEDS: LORazepam 2 MG/ML VIAL IV PRN ×3 (09:36→20:39)
--- NOTE | 2019-08-25 10:41 | REP ---
REASON: Delirium. COMPARISON: 12/10/2018 FINDINGS: The technique utilized in obtaining the radiograph has magnified the cardiac silhouette and accentuated the interstitial markings. The superior mediastinal structures are midline. The cardiac silhouette is unremarkable in size, shape, and position. The diaphragmatic surfaces of the lungs are regular, and the costophrenic angles are clear. The pulmonary jaimes are clear. The imaged osseous structures are intact. IMPRESSION: There is no acute cardiopulmonary disease. Electronically Signed by Dung Connors DO 08/25/2019 05:21 P
[2019-08-25 12:00] VITALS: BP 127/85
[2019-08-25] MEDS ORDERED: HALOPERIDOL 5MG/ML VIAL (J1630 PER 1) IV PRN (14:00)
--- NOTE | 2019-08-25 15:39 | IPNPDOC ---
Text Note Date of Service The patient was seen on 08/25/19. NOTE Subjective: -Restless but denies any physical complaints at this time GEN: Slim build / NAD HEENT: NCAT, dry MM CVS: RRR, no mrg LUNGS: CTAB ABDOMEN: Normoactive, soft, NTND EXTREMITIES: no LE edema, WWP NEURO: Alert, awake, no dysarthria, range of motion intact in all 4 extremities PSYCH: Awake, restless, distracted, gesturing to unseen stimuli LABORATORY DATA: WBC 11.9 Hgb 13.5 Platelets 364 na 145 k 4.4 Cr 0.93 CK 1295 IMAGING: CT head "IMPRESSION: No CT evidence of acute intracranial pathology. " Chest xray appears unremarkable but the final read is pending ASSESSMENT: 34-year-old M with an unknown medical history was brought in by EMS because of agitation and hallucinations with tox screen positive for amphetamines and THC whose course is c/b agitation. PLAN: 1. Metabolic Encephalopathy 2/2 a combination of polysubstance abuse c/b agitation -Fall and seizure precautions -continue IVF -1:1 sitter -PRN ativan 2Q44 PRN, haldol 5Q8H for severe agitation 2. Rhabdomyolysis 2/2 polysubstance ingestion -continue IVF -trend CPK 3. Leukocytosis : Likely reactive 2/2 polysubstance abuse -monitor CBC -CXR without PNA DVT PROPHYLAXIS: SCDs DISPOSITION: Downgrade to medsurg VS,Fishbone, I+O VS, Fishbone, I+O Laboratory Tests 08/24/19 16:17 08/25/19 05:35 Vital Signs Date Time Temp Pulse Resp B/P (MAP) Pulse Ox O2 Delivery O2 Flow Rate FiO2 08/25/19 12:00 98.8 86 20 127/85 (99) 98 Room Air I&O- Last 24 Hours up to 6 AM 08/25/19 06:00 Intake Total 3120 ml Output Total 350 ml Balance 2770 ml BRITTNEY MENESES MD Aug 25, 2019 15:39
[2019-08-25 16:00] VITALS: BP 118/83
[2019-08-25 17:24] VITALS: BP 109/75
[2019-08-25 22:00] VITALS: BP 133/84
[2019-08-26] MEDS: NS 1,000 ML IV SCH ×2 (03:43→08:17)
[2019-08-26 06:00] VITALS: BP 131/80
[2019-08-26 10:01] LABS: HEMATOCRIT 39.7 % (42.0-52.0); HEMOGLOBIN 13.3 g/dl (13.5-17.5); MEAN CORPUSCULAR HEMOGLOBIN 29.1 pg (27.0-33.0); MEAN CORPUSCULAR HGB CONC 33.5 g/dl (32.0-36.5); MEAN CORPUSCULAR VOLUME 86.9 fl (80.0-96.0); PLATELET COUNT, AUTOMATED 361 10^3/uL (150-450); RED BLOOD COUNT 4.57 10^6/uL (4.30-6.10); WHITE BLOOD COUNT 9.2 10^3/uL (4.0-10.0)
[2019-08-26 10:27] LABS: BLOOD UREA NITROGEN 10 MG/DL (7-18); CALCIUM LEVEL 8.3 MG/DL (8.5-10.1); CARBON DIOXIDE LEVEL 23 MEQ/L (21-32); CHLORIDE LEVEL 110 MEQ/L (98-107); CPK CREATINE PHOSPHOKINASE 758 U/L (39-308); CREATININE FOR GFR 0.91 MG/DL (0.70-1.30); GLOMERULAR FILTRATION RATE > 60.0 (>60); GLUCOSE, FASTING 77 MG/DL (70-100); SODIUM LEVEL 141 MEQ/L (136-145)
[2019-08-26 14:00] VITALS: BP 130/78
--- NOTE | 2019-08-26 15:25 | IPNPDOC ---
Text Note Date of Service The patient was seen on 08/26/19. NOTE Subjective: -Doing ok this morning. No complaints. GEN: Slim build / NAD HEENT: NCAT, dry MM CVS: RRR, no mrg LUNGS: CTAB ABDOMEN: Normoactive, soft, NTND EXTREMITIES: no LE edema, WWP NEURO: Alert, awake, no dysarthria, range of motion intact in all 4 extremities PSYCH: Awake, AOx3 LABORATORY DATA: reviewed IMAGING: CT head "IMPRESSION: No CT evidence of acute intracranial pathology. " Chest xray appears unremarkable but the final read is pending ASSESSMENT: 34-year-old M with an unknown medical history was brought in by EMS because of agitation and hallucinations with tox screen positive for amphetamines and THC whose course is c/b agitation. PLAN: 1. Metabolic Encephalopathy 2/2 a combination of polysubstance abuse c/b agitation -Fall and seizure precautions -Will discontinue IVF fluids -1:1 sitter -PRN ativan 2Q44 PRN, haldol 5Q8H for severe agitation 2. Rhabdomyolysis 2/2 polysubstance ingestion -Will discontinue IVF -f/u CK 3. Leukocytosis : Likely reactive 2/2 polysubstance abuse -monitor CBC -CXR without PNA DVT PROPHYLAXIS: SCDs DISPOSITION: medsurg VS,Fishbone, I+O VS, Fishbone, I+O Vital Signs Date Time Temp Pulse Resp B/P (MAP) Pulse Ox O2 Delivery O2 Flow Rate FiO2 08/26/19 06:00 98.6 72 18 131/80 (97) 97 Room Air I&O- Last 24 Hours up to 6 AM 08/26/19 06:00 Intake Total 4860 ml Output Total 2975 ml Balance 1885 ml BRITTNEY MENESES MD Aug 26, 2019 09:23
[2019-08-26 22:00] VITALS: BP 114/72
[2019-08-27 02:00] VITALS: BP 114/72
[2019-08-27 06:00] VITALS: BP 116/75
--- NOTE | 2019-08-27 14:17 | DS.PDOC ---
Discharge Summary General Date of Admission Aug 25, 2019 at 03:10 Date of Discharge 08/27/2019 Attending Physician: BRITTNEY MENESES MD Discharge Summary PROCEDURES PERFORMED DURING STAY: None ADMITTING DIAGNOSES: 1. Toxic metabolic encephalopathy DISCHARGE DIAGNOSES: 1. Toxic metabolic encephalopathy 2. Mild rhabdomyolysis 3. PSUD COMPLICATIONS/CHIEF COMPLAINT: AMS. HISTORY OF PRESENT ILLNESS: 34-year-old gentleman with a history of PSUD and PTSD who was brought in by EMS because of altered mental status, hallucinating and told staff that he saw people being murdered at the nurse's station. HOSPITAL COURSE: In the ED, he was hemodynamically stable and had severe agitation requiring haldol and ativan such that he was admitted to the ICU with a sitter. Workup was notable for drug screen that was positive for amphetamines and cannabinoids. He was hydrated aggressively for mild rhabdomyolysis with normal renal function. He eventually returned to normal mentation and is now being discharged home with information on contacting substance abuse services in the outpatient setting. DISCHARGE MEDICATIONS: Please see below. ALLERGIES: Please see below. PHYSICAL EXAMINATION ON DISCHARGE: VITAL SIGNS: Please see below. GEN: Slim build / NAD HEENT: NCAT, dry MM CVS: RRR, no mrg LUNGS: CTAB ABDOMEN: Normoactive, soft, NTND EXTREMITIES: no LE edema, WWP NEURO: Alert, awake, no dysarthria, range of motion intact in all 4 extremities, normal gait PSYCH: Awake, AOx3 LABORATORY DATA: see below IMAGING: CT head "IMPRESSION: No CT evidence of acute intracranial pathology. " Chest xray: unremarkable without evidence of any acute pathology PROGNOSIS: Good if he abstains from illicit drug use ACTIVITY: As tolerated DIET: Regular DISCHARGE PLAN: Home with substance abuse clinic information and contact details DISPOSITION: Home DISCHARGE INSTRUCTIONS: 1. Home with substance abuse clinic information and contact details ITEMS TO FOLLOWUP ON ON OUTPATIENT: 1. PSUD DISCHARGE CONDITION: Stable TIME SPENT ON DISCHARGE: 31 minutes. Vital Signs/I&Os Vital Signs Date Time Temp Pulse Resp B/P (MAP) Pulse Ox O2 Delivery O2 Flow Rate FiO2 08/27/19 06:00 98.0 80 18 116/75 (89) 99 Room Air I&O- Last 24 Hours up to 6 AM 08/27/19 06:00 Intake Total 1470 ml Output Total 1225 ml Balance 245 ml Laboratory Data Labs 24H Laboratory Tests 2 08/26/19 09:33: Nucleated Red Blood Cells % (auto) 0.0, Anion Gap 8, Glomerular Filtration Rate > 60.0, Calcium Level 8.3L, Total Creatine Kinase 758H CBC/BMP Laboratory Tests 08/26/19 09:33 Discharge Medications No Active Prescriptions or Reported Meds Allergies Coded Allergies: No Known Allergies (Verified , 12/08/18) BRITTNEY MENESES MD Aug 27, 2019 06:57
== END 2019-08-27 10:49 | disposition home or self-care (01) | DRG 52 ==
LOC: M ED 15:54 → EDBD 15:54 → M ED INP 08-25 03:10 → ENRESERV 08-25 04:08 → M ICU 08-25 04:48 → M MSPAV 08-25 17:39
PROVIDERS: ADMIT Internal Medicine; ATTEND Internal Medicine
DX: G92 Toxic encephalopathy (principal); M62.82 Rhabdomyolysis; D72.829 Elevated white blood cell count, unspecified; F12.10 Cannabis abuse, uncomplicated; F11.10 Opioid abuse, uncomplicated; F15.10 Other stimulant abuse, uncomplicated

== ENCOUNTER 2020-09-22 15:00 | Emergency (ER) | payer OTHER ==
[~2020-09-22] VITALS: Ht 170.2 cm; Wt 59.6 kg
[~2020-09-22 15:00] MED LIST changes: +BUPR150T12; +BUPR150T12 PO; -BUPR150T3; -BUPR150T3 PO; +ESCI10TA16; -ESCI10TA2; -ESCI20TA; -ESCI20TA PO; +ESCI20TA16; +ESCI20TA16 PO; +GABA-282 PO; -GABA-843 PO; +MACR100C43 PO; +TRAZ-252 PO
[2020-09-22] MEDS ORDERED: DERMABOND TOPICAL SKIN ADHESIVE TOP ONE (18:25)
[2020-09-22] MEDS ORDERED: AUGMENTIN 875 MG TAB PO ONE (18:25)
[2020-09-22] MEDS ORDERED: BACITRACIN OINTMENT 30GM TUBE TOP STA (19:05)
[2020-09-22] MEDS ORDERED: AUGM875T28 PO (19:25)
[2020-09-22 19:37] VITALS: BP 133/67
== END 2020-09-22 20:15 | disposition home or self-care (01) ==
LOC: M ED 15:00
DX: S71.151A Open bite, right thigh, initial encounter (principal); S61.451A Open bite of right hand, initial encounter; W54.0XXA Bitten by dog, initial encounter; Y92.009 Unspecified place in unspecified non-institutional (private) residence as the place of occurrence of the external cause; Y93.K1 Activity, walking an animal; Y99.9 Unspecified external cause status

== ENCOUNTER → 2020-11-17 | Outpatient (CLI) | payer MEDICAID ==
[~2020-11-17] MED LIST changes: +AUGM875T28 PO
== END ==
LOC: M OUTALCOH 07:58
PROVIDERS: ATTEND Psychiatry & Neurology Psychiatry
DX: Z03.89 Encounter for observation for other suspected diseases and conditions ruled out (principal)

== ENCOUNTER 2020-12-02 13:08 | Outpatient (RCR) | payer MEDICAID | END 2020-12-18 | LOC: M OUTALCOH 13:08 | PROVIDERS: ATTEND Psychiatry & Neurology Psychiatry | DX: Z03.89 Encounter for observation for other suspected diseases and conditions ruled out (principal) ==

== ENCOUNTER 2022-06-22 12:48 | Emergency (ER) | payer OTHER ==
[~2022-06-22] VITALS: Ht 170.2 cm; Wt 61.5 kg
[2022-06-22] MEDS ORDERED: BOOSTRIX VACCINE (TETANUS/DIPHTH/ACEL. PERTUSSIS) 0.5ML SYR IM ONE (14:25)
[2022-06-22] MEDS ORDERED: BACITRACIN OINTMENT 30GM TUBE TOP ONE (16:00)
[2022-06-22] MEDS ORDERED: AUGMENTIN 875 MG TAB PO ONE (16:00)
[2022-06-22] MEDS ORDERED: AMOX875T2 PO (16:01)
[2022-06-22 16:11] VITALS: BP 118/85
== END 2022-06-22 16:17 | disposition home or self-care (01) ==
LOC: M ED 12:48
DX: S61.431A Puncture wound without foreign body of right hand, initial encounter (principal); S61.432A Puncture wound without foreign body of left hand, initial encounter; W54.0XXA Bitten by dog, initial encounter; K21.9 Gastro-esophageal reflux disease without esophagitis; F90.9 Attention-deficit hyperactivity disorder, unspecified type; F41.9 Anxiety disorder, unspecified; F32.A Depression, unspecified; J45.909 Unspecified asthma, uncomplicated; Z23 Encounter for immunization